=== PATIENT | female | born 1945 | race Caucasian/White ===

== ENCOUNTER 2017-02-26 20:22 | Inpatient (IN) | payer MEDICARE, OTHER ==
[~2017-02-26] VITALS: Ht 170.2 cm; Wt 62.6 kg
[~2017-02-26 20:22] MED LIST: ACET-868 PO; IPRA3AMP IH; METO25TA20 PO; NICO1PAT28 TD; PANT40TA4 PO; THIA100T74 PO
--- NOTE | 2017-02-26 20:45 | NUR ---
ADMISSION NOTES: ADMITTED A 71 Y/O FEMALE FROM [facility]. PT ON 5150 HOLD FOR DTS. PER HOLD, PATIENT STATES SHE HAS DEPRESSION AND HAS BEEN FEELING SAD LATELY. PT STATES SHE "FEELS LIKE SHE IS GOING TO ". PT ADMITS TO SUICIDAL IDEATION BUT UNSURE OF PLAN AT THIS TIME. PATIENT ADMITTING DX. DEPRESSION AND MEDICAL DX. OF HTN, ACUTE PANCREATITIS, POLYARTHRITIS, NEAR SYNCOPE, MUSCLE WEAKNESS, CHRONIC PAIN SYNDROME. UPON FACE TO FACE EVALUATION, PATIENT IS ALERT AND ORIENTED X 3. V/S WNL. PATIENT HAS NO SOB, RESPIRATION EVEN AND UNLABORED, NO ACUTE DISTRESS NOTED, DENIES PAIN AND DISCOMFORT. DENIES SI/HI AT THIS TIME. AMBULATORY WITH WALKER. PATIENT IS UNDER THE CARE OF DR. JARA FOR PSYCH AND ANIL FOR MEDICAL. NOTIFIED DR. JARA WITH ORDERS GIVEN NOTED AND CARRIED OUT. SKIN AND BODY CHECKED DONE. SKIN CLEAR AND INTACT. BELONGINGS INSPECTED AND PLACED TO SAFE LOCKED CABINET. ALL NEEDS ATTENDED AND MET. WILL CONTINUE TO MONITOR M05YHED FOR SAFETY AND BEHAVIOR.
[2017-02-26] MEDS ORDERED: ACETAMINOPHEN 325 MG TABLET PO PRN ×2 (21:00→22:30)
[2017-02-26] MEDS ORDERED: MAGNESIUM HYDROXIDE 30 ML UDC PO PRN (21:00)
[2017-02-26] MEDS ORDERED: LORAZEPAM 0.5 MG TABLET PO PRN (21:00)
[2017-02-26] MEDS ORDERED: MAG HYDROX/AL HYDROX/SIMETH 30 ML UDC PO PRN (21:00)
[2017-02-26] MEDS ORDERED: IPRATROPIUM/ALBUTEROL INHALER IH PRN (22:30)
[2017-02-27 00:24] VITALS: BP 146/87
[2017-02-27 07:24] LABS: BASOPHILS % (AUTO) 0.2 % (0.0-2.0); EOSINOPHILS # (AUTO) 0.1 /CMM (0.0-0.7); EOSINOPHILS % (AUTO) 1.6 % (0.0-6.0); HEMATOCRIT 41 % (33-45); HEMOGLOBIN 13.7 g/dL (11.5-14.8); LYMPHOCYTES # (AUTO) 2.3 /CMM (0.8-4.8); LYMPHOCYTES % (AUTO) 29.3 % (20.0-44.0); MEAN CORPUSCULAR HEMOGLOBIN 29 PG (26.0-33.0); MEAN CORPUSCULAR HGB CONC 34 g/dl (31.0-36.0); MEAN CORPUSCULAR VOLUME 85 fL (82-100); MONOCYTES # (AUTO) 0.7 /CMM (0.1-1.30); MONOCYTES % (AUTO) 8.6 % (2.0-12.0); NEUTROPHILS # (AUTO) 4.7 /CMM (1.8-8.9); NEUTROPHILS % (AUTO) 60.3 % (43.0-81.0); PLATELET COUNT (AUTO) 280 /CMM (150-450); RDW COEFFICIENT OF VARIATION 14.8 (11.5-15.0); WHITE BLOOD COUNT (AUTO) 7.9 K/uL (4.3-11.0)
[2017-02-27 07:54] LABS: CHOLESTEROL 239 mg/dL (<200); HDL CHOLESTEROL 109 mg/dL (40-60); LDL 102 mg/dL (0-99); TRIGLYCERIDES 128 mg/dL (30-150)
[2017-02-27 07:55] LABS: ALANINE AMINOTRANSFERASE 24 U/L (12-78); ALBUMIN 3.8 g/dL (3.4-5.0); ALKALINE PHOSPHATASE 64 U/L (46-116); ASPARTATE AMINOTRANSFERASE 22 U/L (15-37); BILIRUBIN,TOTAL 0.8 mg/dL (0.2-1.0); CALCIUM, SERUM 8.9 mg/dL (8.5-10.1); CARBON DIOXIDE 30 mmol/L (21-32); CHLORIDE 101 mmol/L (98-107); CREATININE 0.7 mg/dL (0.6-1.3); GLUCOSE 105 mg/dL (74-106); POTASSIUM 3.3 mmol/L (3.5-5.1); SODIUM SERUM 141 mmol/L (136-145); TOTAL PROTEIN, SERUM 7.9 g/dL (6.4-8.2); UREA NITROGEN, BLOOD 12 mg/dL (7-18)
[2017-02-27] MEDS ORDERED: IPRATROPIUM NEB FS 0.5 MG/2.5 ML AMPUL.NEB NEB PRN (08:00)
[2017-02-27] MEDS ORDERED: ALBUTEROL FS 2.5 MG/0.5 ML VIAL.NEB NEB PRN (08:00)
[2017-02-27 08:23] VITALS: BP 139/80
[2017-02-27] MEDS: NICOTINE PATCH (21MG) 21 MG PATCH.TD24 TD SCH (09:00)
[2017-02-27] MEDS: PANTOPRAZOLE 40 MG TABLET.DR PO SCH (09:18)
[2017-02-27] MEDS: METOPROLOL TARTRATE 25 MG TABLET PO SCH ×2 (09:18→20:22)
[2017-02-27] MEDS: THIAMINE HCL 100 MG TABLET PO SCH (09:19)
[2017-02-27] MEDS ORDERED: POTASSIUM CHLORIDE 20 MEQ TAB.PRT.SR PO ONE (09:30)
[2017-02-27] MEDS: LORAZEPAM 0.5 MG TABLET PO PRN (13:14)
--- NOTE | 2017-02-27 13:14 | NUR ---
ADMINISTERED ATIVAN 2 MG PO PRN FOR ANXIETY, V/S STABLE BP - 140/89, P-77, CONTINUED MONITORING.
[2017-02-27 16:00] VITALS: BP 164/99
[2017-02-27 20:25] VITALS: BP 125/80
--- NOTE | 2017-02-27 20:31 | NUR ---
GPS/RN NOTE: RECEIVED PATIENT RESTING, CALM, INITIATES CONVERSATION. NO APPARENT DISTRESS NOTED.
[2017-02-27] MEDS: ATORVASTATIN 10 MG TABLET PO SCH (21:08)
--- NOTE | 2017-02-28 06:43 | NUR ---
GPS/RN NOTE: AWAKE, C/O GENERALIZED PAIN. 3/10 PAIN SCALE, TYLENOL 650 MG PO GIVEN.
[2017-02-28 08:00] VITALS: BP 127/77
[2017-02-28] MEDS: PANTOPRAZOLE 40 MG TABLET.DR PO SCH (08:31)
[2017-02-28] MEDS: THIAMINE HCL 100 MG TABLET PO SCH (08:31)
[2017-02-28] MEDS: METOPROLOL TARTRATE 25 MG TABLET PO SCH ×2 (08:32→21:30)
[2017-02-28] MEDS: NICOTINE PATCH (21MG) 21 MG PATCH.TD24 TD SCH (08:32)
[2017-02-28] MEDS: ESCITALOPRAM OXALATE (10 MG) 10 MG TABLET PO SCH (08:37)
[2017-02-28] MEDS: LORAZEPAM 0.5 MG TABLET PO PRN (08:37)
--- NOTE | 2017-02-28 08:37 | NUR ---
GPS RN NOTES/ ADMINISTERED ATIVAN 2 MG PO PRN FOR ANXIETY, PER MD ORDER BP -130/69, P-59, CONTINUED MONITORING.
--- NOTE | 2017-02-28 15:29 | NUR ---
Initial discharge plan: Pt. resides alone at [address] [facility] [address] and wants to return. MATY will follow up with pt's son, Amish [phone] to verify whether it is safe for pt to return or not. Pt. refuses placement at this time and wants to return home. MATY will follow up with MD and will help arrange for a safe and proper discharge.
[2017-02-28 16:02] VITALS: BP 113/74
--- NOTE | 2017-02-28 19:30 | NUR ---
GPS RN NOTE, RECEIVED PATIENT AWAKE AND IN BED, NO S/S OR COMPLAINTS OF PAIN AT THIS TIME. PATIENT IS DISPLAYING NO S/S OF APPARENT DISTRESS AT THIS TIME. PATIENT BREATHING IS UNLABORED WITH EQUAL RISE AND FALL OF THE CHEST. PATIENT IS ALERT AND ORIENTED X 1 -2 ON ROOM AIR WITH A SPO2 96%. PATIENT COMPLAINT WITH MEDICATION, ANXIOUS, COOPERATIVE, CONFUSED, DISORGANIZED, AND NEEDS REORIENTATION. PATIENT DENIES SUICIDE AND HOMICIDAL IDEATIONS AT THIS TIME. PATIENT ASSISTED WITH TURNING AND REPOSITIONING Q2HR AND PRN FOR COMFORT AND CIRCULATION. PATIENT HAS NO NEEDS AT THIS TIME. PATIENT EDUCATED ON THE USE OF THE CALL CHACKO. PATIENT BED SIDE RAILS UP X2 FOR SAFETY, BED IS LOCKED AND LOW WILL CONTINUE TO MONITOR AND MAINTAIN SAFETY.
[2017-02-28] MEDS ORDERED: HYDROCODONE/APAP 5/325MG 1 EACH TABLET ONE (21:00)
[2017-02-28] MEDS: HYDROCODONE/APAP 5/325MG 1 EACH TABLET PO PRN (21:01)
--- NOTE | 2017-02-28 21:01 | NUR ---
GPS RN NOTE, PATIENT HAS A COMPLAINT OF CHRONIC RIGHT HIP PAIN AT 6 OUT 10 ON THE PAIN SCALE AND WOULD LIKE MEDICATION AT THIS TIME. PATIENT VITAL SIGNS ARE STABLE AT THIS TIME. PAGED [facility] AND INFORMED DEANDRA FIGUEROA OF MY FINDINGS. DEANDRA FIGUEROA ORDERED TO NORCO 5-325 1 TAB PO Q4HR PRN. ALL ORDERS NOTED AND CARRIED OUT. WILL REASSESS PAIN AND I WILL CONTINUE TO MONITOR THIS PATIENT.
[2017-02-28] MEDS: ATORVASTATIN 10 MG TABLET PO SCH (21:29)
[2017-02-28 22:19] VITALS: BP 128/84
[2017-02-28] MEDS: ZOLPIDEM TARTRATE 5 MG TABLET PO PRN (22:20)
--- NOTE | 2017-02-28 22:20 | NUR ---
GPS RN NOTE, GPS RN NOTE PATIENT HAS A COMPLAINT OF NOT BEING ABLE TO SLEEP AND WOULD LIKE A SLEEPING AID AT THIS TIME. PATIENT VITAL SIGNS ARE STABLE. GAVE AMBIEN 5MG PO HS ORDERED. WILL REASSESS FOR INSOMNIA AND I WILL CONTINUE TO MONITOR THIS PATIENT.
[2017-02-28 22:26] VITALS: BP 123/80
[2017-03-01] MEDS: LORAZEPAM 0.5 MG TABLET PO PRN (02:56)
--- NOTE | 2017-03-01 02:56 | NUR ---
GPS RN NOTE, PATIENT HAS A COMPLAINT OF FEELING ANXIOUS AND WOULD LIKE MEDICATION AT THIS TIME. PATIENT VITAL SIGNS ARE STABLE. GAVE ATIVAN 2 MG PO Q3HR PRN ORDERED. WILL REASSESS FOR ANXIETY AND I WILL CONTINUE TO MONITOR THIS PATIENT.
[2017-03-01 08:00] VITALS: BP 131/91
[2017-03-01] MEDS: NICOTINE PATCH (21MG) 21 MG PATCH.TD24 TD SCH (08:34)
[2017-03-01] MEDS: THIAMINE HCL 100 MG TABLET PO SCH (08:35)
[2017-03-01] MEDS: ESCITALOPRAM OXALATE (10 MG) 10 MG TABLET PO SCH (08:35)
[2017-03-01] MEDS: PANTOPRAZOLE 40 MG TABLET.DR PO SCH (08:35)
[2017-03-01] MEDS: METOPROLOL TARTRATE 25 MG TABLET PO SCH ×2 (08:36→20:26)
[2017-03-01] MEDS: HYDROCODONE/APAP 5/325MG 1 EACH TABLET PO PRN (08:42)
--- NOTE | 2017-03-01 08:42 | NUR ---
GPS RN NOTES/ ADMINISTERED NARCO 5/325 MG PO PRN PER PATIENT REQUEST, V/S TAKEN BP-131/91, P-81, ENCOURAGED TO INCREASE FLUID INTAKE. CONTINUED MONITORING.
[2017-03-01 16:03] VITALS: BP 148/95
[2017-03-01 19:50] VITALS: BP 136/90
--- NOTE | 2017-03-01 20:00 | NUR ---
GPS/RN OPENING NOTES PATIENT AWAKE, ABLE TO AMBULATE W/ WALKER, ALERT, ORIENTED X2, ABLE TO VERBALIZE NEEDS AND COOPERATIVE TO CARE, WILL CONTINUE TO MONITOR. RESPIRATIONS EVEN AND UNLABORED, DENIES PAIN AT THIS TIME.WILL CONTINUE TO MONITOR.
[2017-03-01 20:19] VITALS: BP 136/90
[2017-03-01 20:23] VITALS: BP 136/90
[2017-03-01 20:51] LABS: CALCIUM, SERUM 8.7 mg/dL (8.5-10.1); CARBON DIOXIDE 26 mmol/L (21-32); CHLORIDE 102 mmol/L (98-107); GLUCOSE 153 mg/dL (74-106); POTASSIUM 3.8 mmol/L (3.5-5.1); SODIUM SERUM 137 mmol/L (136-145); UREA NITROGEN, BLOOD 18 mg/dL (7-18)
[2017-03-01] MEDS: ATORVASTATIN 10 MG TABLET PO SCH (21:22)
--- NOTE | 2017-03-02 06:08 | NUR ---
GPS/RN CLOSING NOTES PATIENT IN BED, ABLE TO SLEEP DURING THE NIGHT. ASSIST TO BATHROOM, ATTEND TO NEEDS. NO PAIN VERBALIZED AND OBSERVED. RESPIRATIONS EVEN AND UNLABORED, WILL CONTINUE MONITORING AND ENDORSE TO AM RN FOR FESTUS.
[2017-03-02 08:00] VITALS: BP 139/75
[2017-03-02] MEDS: THIAMINE HCL 100 MG TABLET PO SCH (08:37)
[2017-03-02] MEDS: PANTOPRAZOLE 40 MG TABLET.DR PO SCH (08:37)
[2017-03-02] MEDS: ESCITALOPRAM OXALATE (10 MG) 10 MG TABLET PO SCH (08:37)
[2017-03-02] MEDS: NICOTINE PATCH (21MG) 21 MG PATCH.TD24 TD SCH (08:37)
[2017-03-02] MEDS: METOPROLOL TARTRATE 25 MG TABLET PO SCH ×2 (08:38→21:18)
[2017-03-02] MEDS: HYDROCODONE/APAP 5/325MG 1 EACH TABLET PO PRN (10:01)
--- NOTE | 2017-03-02 10:01 | NUR ---
GPS RN NOTES ADMINISTERED NARCO 5/325 MG PO PRN FOR CHRONIC GENERALIZED PAIN 02/17, PER PATIENT REQUEST, V/S STABLE, BP 134/75, P-79, ENCOURAGED TO INCREASE FLUID INTAKE. CONTINUED MONITORING.
--- NOTE | 2017-03-02 15:43 | NUR ---
SW attempted to speak with pt's son, Amish [phone] but he was not available. SW also spoke with pt and pt. continues to insist that she wants to go home. SW will provide resources to the patient to outpatient treatment centers.
[2017-03-02 16:11] VITALS: BP_SYST 103; BP_SYST 119; BP_DIAS 59; BP_DIAS 69
[2017-03-02 20:15] VITALS: BP 121/84
[2017-03-02] MEDS: ATORVASTATIN 10 MG TABLET PO SCH (21:17)
[2017-03-02] MEDS: ZOLPIDEM TARTRATE 5 MG TABLET PO PRN (21:46)
--- NOTE | 2017-03-03 06:32 | NUR ---
RN GPS NOTES PATIENT RESTING HER BED, NO ACUTE DISTRESS NOTED ,NO CHANGES IN STATUS. ALL NEEDS ATTENDED ANTICIPATED . DENIES SI AT THIS TIME, WILL ENDORSE TO NEXT SHIFT FOR CONTINUITY CARE
[2017-03-03 08:00] VITALS: BP 136/76
[2017-03-03] MEDS: ESCITALOPRAM OXALATE (10 MG) 10 MG TABLET PO SCH (09:04)
[2017-03-03] MEDS: THIAMINE HCL 100 MG TABLET PO SCH (09:04)
[2017-03-03] MEDS: PANTOPRAZOLE 40 MG TABLET.DR PO SCH (09:04)
[2017-03-03] MEDS: METOPROLOL TARTRATE 25 MG TABLET PO SCH ×2 (09:04→21:18)
[2017-03-03] MEDS: NICOTINE PATCH (21MG) 21 MG PATCH.TD24 TD SCH (09:04)
--- NOTE | 2017-03-03 13:20 | NUR ---
MATY left a voicemail for pt's son, Amish [phone] informing him of pt's discharge for this Tuesday. 03/05/
[2017-03-03 15:45] VITALS: BP 155/85
[2017-03-03 20:00] VITALS: BP 126/77
[2017-03-03] MEDS: ATORVASTATIN 10 MG TABLET PO SCH (21:17)
[2017-03-03] MEDS: ZOLPIDEM TARTRATE 5 MG TABLET PO PRN (22:04)
[2017-03-04 06:28] LABS: APPEARANCE,URINE CLEAR (CLEAR); BILIRUBIN,URINE NEGATIVE (NEGATIVE); BLOOD, URINE NEGATIVE Ery/uL (NEGATIVE); COLOR,URINE YELLOW (YELLOW); KETONES,URINE NEGATIVE (NEGATIVE); LEUKOCYTE ESTERASE ,URINE NEGATIVE (NEGATIVE); NITRITE, URINE NEGATIVE (NEGATIVE); PH,URINE 6.5 (5.0-8.0); PROTEIN,URINE NEGATIVE (NEGATIVE); UGLUCOSE NEGATIVE (NEGATIVE); UROBILINOGEN,URINE 0.2 EU/dL (0.2)
--- NOTE | 2017-03-04 06:30 | NUR ---
RN GPS NOTES PATIENT RESTING HER BED, NO ACUTE DISTRESS NOTED ,NO CHANGES IN STATUS. ALL NEEDS ATTENDED ANTICIPATED . DENIES SI/HI AT THIS TIME, WILL ENDORSE TO NEXT SHIFT FOR CONTINUITY CARE
[2017-03-04 08:00] VITALS: BP 133/76
[2017-03-04] MEDS: THIAMINE HCL 100 MG TABLET PO SCH (08:40)
[2017-03-04] MEDS: ESCITALOPRAM OXALATE (10 MG) 10 MG TABLET PO SCH (08:40)
[2017-03-04] MEDS: PANTOPRAZOLE 40 MG TABLET.DR PO SCH (08:40)
[2017-03-04] MEDS: NICOTINE PATCH (21MG) 21 MG PATCH.TD24 TD SCH (08:41)
[2017-03-04] MEDS: METOPROLOL TARTRATE 25 MG TABLET PO SCH (08:41)
[2017-03-04] MEDS: HYDROCODONE/APAP 5/325MG 1 EACH TABLET PO PRN (12:57)
--- NOTE | 2017-03-04 12:58 | NUR ---
Discharge note: Pt. will discharge back home to [address] [facility] [address] . Pt's son, Amish [phone] has been notified via voicemail. Pt. is calm, cooperative, oriented and able to make her own decisions. Pt. will be discharged back home via taxi. Pt. is an alcoholic, hence, has a screening appointment at [facility], [address] [place] [address] 9:00AM on 03/08/17. Pt. reported that did not have a psychiatrist or an stencil maker; therefore, pt was referred to [facility][1] [address] to see a psychiatrist within 7 days of discharge. Discharge paperwork has been signed, and discharge instructions to be provided to the patient upon discharge.
[2017-03-04 16:00] VITALS: BP 116/64
--- NOTE | 2017-03-04 16:30 | NUR ---
GPS MSWS NOTES: Patient discharged back home to [address] [facility] [address] . Patient's condition is stable for discharge, VS stable. Patient denies any SI/HI/AVH at the time of discharge. All belongings returned to the patient. Prescriptions faxed to the [facility] pharmacy which is patient's preferred pharmacy [[address] [facility], [address], tel: [phone]]. Spoke with zaida Armendariz, confirmed fax receipt. Patient provided with Educational Exit Care and prescriptions. Pt left the unit accompanied by the staff, went via taxi.
== END 2017-03-04 16:30 | disposition home or self-care (01) | DRG 881 ==
LOC: GPS 20:22
PROVIDERS: ADMIT Psychiatry & Neurology Psychiatry; ATTEND Psychiatry & Neurology Psychiatry
DX: F32.9 Major depressive disorder, single episode, unspecified (principal); R45.851 Suicidal ideations; D64.9 Anemia, unspecified; K86.0 Alcohol-induced chronic pancreatitis; I10 Essential (primary) hypertension; Z81.8 Family history of other mental and behavioral disorders; Z96.649 Presence of unspecified artificial hip joint; Z79.899 Other long term (current) drug therapy; Y90.7 Blood alcohol level of 200-239 mg/100 ml; F41.9 Anxiety disorder, unspecified; F17.210 Nicotine dependence, cigarettes, uncomplicated; F10.229 Alcohol dependence with intoxication, unspecified; E87.6 Hypokalemia; E78.5 Hyperlipidemia, unspecified
CPT/HCPCS: 36415; 80048-TC; 80053-TC; 80061-TC; 81000-TC; 85025-TC; 87081-TC; 87086-TC; 87186-TC

== ENCOUNTER 2017-06-18 19:01 | Emergency (ER) | payer MEDICARE, OTHER ==
[~2017-06-18] VITALS: Ht 175.3 cm; Wt 68.0 kg
--- NOTE | 2017-06-18 19:10 | NUR ---
PT TO ER BED 6. PT CINDY WILHELM FROM [facility], C/O BACK PAIN FROM A FALL X 2 HOURS AGO. PT DENIES HITTING HER HEAD AND LOC. PT PLACED IN A GOWN AND ON THE REGISTERED ACCOUNT ADMINISTRATOR. VSS/RESP EVEN UNLABORED/NAD NOTED/SKIN WARM AND DRY/DENIES N-V-D/AOX4. AWAITING MD GOMEZ.
--- NOTE | 2017-06-18 19:31 | NUR ---
AT BEDSIDE FOR EVAL.
--- NOTE | 2017-06-18 19:45 | NUR ---
20G IV TO R AC X 2 ATTEMPTS USING ASEPTIC TECH, BLOOD HANDED OVER TO LAB AT BEDSIDE. IV FLUSHES EASILY WITH NS.
[2017-06-18 19:55] LABS: BASOPHILS # (AUTO) 0.1 /CMM (0.0-0.2); BASOPHILS % (AUTO) 0.8 % (0.0-2.0); EOSINOPHILS # (AUTO) 0.1 /CMM (0.0-0.7); EOSINOPHILS % (AUTO) 0.8 % (0.0-6.0); HEMATOCRIT 39 % (33-45); HEMOGLOBIN 12.5 g/dL (11.5-14.8); LYMPHOCYTES # (AUTO) 2.3 /CMM (0.8-4.8); LYMPHOCYTES % (AUTO) 23.4 % (20.0-44.0); MEAN CORPUSCULAR HEMOGLOBIN 27 PG (26.0-33.0); MEAN CORPUSCULAR HGB CONC 32 g/dl (31.0-36.0); MEAN CORPUSCULAR VOLUME 84 fL (82-100); MONOCYTES # (AUTO) 0.8 /CMM (0.1-1.30); MONOCYTES % (AUTO) 8.2 % (2.0-12.0); NEUTROPHILS # (AUTO) 6.5 /CMM (1.8-8.9); NEUTROPHILS % (AUTO) 66.8 % (43.0-81.0); PLATELET COUNT (AUTO) 286 /CMM (150-450); RDW COEFFICIENT OF VARIATION 12.5 (11.5-15.0); RED BLOOD CELL COUNT(AUTO) 4.62 MIL/uL (4.0-5.2); WHITE BLOOD COUNT (AUTO) 9.8 K/uL (4.3-11.0)
--- NOTE | 2017-06-18 19:59 | NUR ---
XRAY AT BEDSIDE FOR CXR.
[2017-06-18] MEDS ORDERED: IPRATROPIUM NEB FS 0.5 MG/2.5 ML AMPUL.NEB NEB ONE (20:00)
[2017-06-18] MEDS ORDERED: ALBUTEROL FS 2.5 MG/0.5 ML VIAL.NEB NEB ONE (20:00)
[2017-06-18 20:06] LABS: CALCIUM, SERUM 9.4 mg/dL (8.5-10.1); CARBON DIOXIDE 27 mmol/L (21-32); CHLORIDE 105 mmol/L (98-107); GLUCOSE 102 mg/dL (74-106); SODIUM SERUM 142 mmol/L (136-145); UREA NITROGEN, BLOOD 14 mg/dL (7-18)
[2017-06-18 20:09] LABS: INR 0.98 (0.87-1.13); PROTHROMBIN TIME 10.2 SECS (9.5-12.7)
[2017-06-18 20:11] LABS: ALANINE AMINOTRANSFERASE 12 U/L (12-78); ALBUMIN 3.5 g/dL (3.4-5.0); ALCOHOL, BLOOD < 3 mg/dL (0-0); ALKALINE PHOSPHATASE 71 U/L (46-116); ASPARTATE AMINOTRANSFERASE 15 U/L (15-37); BILIRUBIN,DIRECT 0.1 mg/dL (0.0-0.2); BILIRUBIN,TOTAL 0.3 mg/dL (0.2-1.0); TOTAL PROTEIN, SERUM 7.7 g/dL (6.4-8.2)
[2017-06-18 20:12] LABS: ACETAMINOPHEN < 10 ug/ml (10-30); SALICYLATE 1.4 mg/dL (2.8-20.0)
[2017-06-18 20:13] LABS: TROPONIN I < 0.017 ng/mL (0.00-0.056)
--- NOTE | 2017-06-18 20:15 | NUR ---
RT CALLED FOR NEB TX PER MD ORDERS.
--- NOTE | 2017-06-18 20:15 | NUR ---
URINE SPECIMEN OBTAINED AND SENT TO THE LAB.
[2017-06-18] MEDS ORDERED: TRAMADOL HCL 50 MG TABLET ONE (20:18)
[2017-06-18] MEDS ORDERED: IPRATROPIUM NEB FS 0.5 MG/2.5 ML AMPUL.NEB ONE (20:27)
[2017-06-18] MEDS ORDERED: ALBUTEROL FS 2.5 MG/3 ML VIAL.NEB ONE (20:27)
--- NOTE | 2017-06-18 20:28 | NUR ---
RT AT BEDSIDE FOR HAMMAD TX.
[2017-06-18] MEDS ORDERED: TRAMADOL HCL 50 MG TABLET PO ONE (20:30)
[2017-06-18 20:49] LABS: APPEARANCE,URINE Clear (CLEAR); BILIRUBIN,URINE Negative (NEGATIVE); BLOOD, URINE Negative Ery/uL (NEGATIVE); COLOR,URINE Yellow (YELLOW); KETONES,URINE Negative (NEGATIVE); LEUKOCYTE ESTERASE ,URINE Trace (NEGATIVE); NITRITE, URINE Negative (NEGATIVE); PROTEIN,URINE Negative (NEGATIVE); UGLUCOSE Negative (NEGATIVE); UROBILINOGEN,URINE 0.2 EU/dL (0.2)
[2017-06-18 20:59] LABS: BACTERIA,URINE None seen /HPF (None Seen); RBC,URINE NONE SEEN /HPF (0-2); WBC,URINE 0-2 /HPF (0-3)
[2017-06-18 21:00] LABS: SQUAMOUS EPITHELIAL CELL,UR Rare /HPF (None Seen)
--- NOTE | 2017-06-18 21:10 | NUR ---
CALLED [facility] FOR TRANSPORT - ETA 30 MIN - TRIP# [id number]
--- NOTE | 2017-06-18 21:29 | NUR ---
REPORT GIVEN TO MEGHA AT [facility] FOR FESTUS.
--- NOTE | 2017-06-18 22:00 | NUR ---
REPORT GIVEN TO IDALIA SCHWAB FOR FESTUS. PT BEING TRANSPORTED BACK TO [facility].
--- NOTE | 2017-06-18 22:02 | NUR ---
Patient discharged to [facility] for transfer back to [facility] in stable condition. Written and verbal after care instructions given. Patient verbalizes understanding of instruction.
[2017-06-18 22:07] VITALS: BP 145/78
== END 2017-06-18 22:07 | disposition home or self-care (01) ==
LOC: ER 19:03
DX: M54.5 Low back pain (principal); R51 Headache; F03.90 Unspecified dementia, unspecified severity, without behavioral disturbance, psychotic disturbance, mood disturbance, and anxiety; J44.1 Chronic obstructive pulmonary disease with (acute) exacerbation; I10 Essential (primary) hypertension; F17.200 Nicotine dependence, unspecified, uncomplicated; W01.0XXA Fall on same level from slipping, tripping and stumbling without subsequent striking against object, initial encounter; Y93.01 Activity, walking, marching and hiking; Y92.89 Other specified places as the place of occurrence of the external cause; Y99.8 Other external cause status
CPT/HCPCS: 36415; 71010-TC; 80048-TC; 80076-TC; 80305; 81000-TC; 83880; 84484-TC; 85025-TC; 85730-TC; A4606; G0480; Z7610

== ENCOUNTER 2017-09-14 17:11 | Emergency (ER) | payer MEDICARE, OTHER ==
[~2017-09-14] VITALS: Ht 175.3 cm; Wt 65.3 kg
[2017-09-14] MEDS ORDERED: ONDANSETRON HCL/PF 4 MG/2 ML VIAL IVP ONE (18:00)
[2017-09-14] MEDS ORDERED: ONDANSETRON HCL/PF 4 MG/2 ML VIAL ONE (18:00)
[2017-09-14] MEDS ORDERED: Thiamine 100 MG in IV D5W 50 ML IV SCH (18:00)
[2017-09-14] MEDS ORDERED: IV NS 0.9% 1,000 ML BAG IV ONE (18:00)
--- NOTE | 2017-09-14 18:06 | NUR ---
AMADA FROM HOME DT ETOH. PER FMILY PATIENT HAS BEEN DRINKING ALOT.PATIENT NOTED WITH MULTIPLE DISCOLORATION ON LEFT SIDE OF HEAD AND FACE, ADMITTED FALONG LAST NIGHT, NO REPORTED KO. HOWEVER PT IS COMPLAINING OF HEADACHE. PATIENT IS AEFBRILE. SATING WELL ON ROOM AIR. GOWNED AND CONNECTED PT TO TELE MONITOR; JESÚS GOMEZ
--- NOTE | 2017-09-14 18:09 | NUR ---
PATIENT WAS TAKEN TO CT
--- NOTE | 2017-09-14 18:12 | NUR ---
CALLED [facility] TO EXPEDITE THE IMAGES TO BE READ
--- NOTE | 2017-09-14 18:20 | NUR ---
DR BAUGH ON THE PHONE WITH A RADIOLIGST,
--- NOTE | 2017-09-14 18:24 | NUR ---
CALLED DR DONOVAN, LEFT A VOICEMAIL.
[2017-09-14 18:26] LABS: BASOPHILS # (AUTO) 0.2 /CMM (0.0-0.2); BASOPHILS % (AUTO) 1.5 % (0.0-2.0); EOSINOPHILS % (AUTO) 0.1 % (0.0-6.0); HEMATOCRIT 38 % (33-45); HEMOGLOBIN 12.8 g/dL (11.5-14.8); LYMPHOCYTES # (AUTO) 1.4 /CMM (0.8-4.8); LYMPHOCYTES % (AUTO) 11.5 % (20.0-44.0); MEAN CORPUSCULAR HEMOGLOBIN 28 PG (26.0-33.0); MEAN CORPUSCULAR HGB CONC 34 g/dl (31.0-36.0); MEAN CORPUSCULAR VOLUME 82 fL (82-100); MONOCYTES # (AUTO) 1.1 /CMM (0.1-1.30); MONOCYTES % (AUTO) 8.8 % (2.0-12.0); NEUTROPHILS # (AUTO) 9.5 /CMM (1.8-8.9); NEUTROPHILS % (AUTO) 78.1 % (43.0-81.0); PLATELET COUNT (AUTO) 281 /CMM (150-450); RDW COEFFICIENT OF VARIATION 14.3 (11.5-15.0); RED BLOOD CELL COUNT(AUTO) 4.56 MIL/uL (4.0-5.2); WHITE BLOOD COUNT (AUTO) 12.2 K/uL (4.3-11.0)
--- NOTE | 2017-09-14 18:30 | NUR ---
CALLED DR DONOVAN, NO ANSWER
[2017-09-14 18:35] LABS: INR 0.89 (0.85-1.15)
[2017-09-14 18:37] LABS: CALCIUM, SERUM 9.1 mg/dL (8.5-10.1); CARBON DIOXIDE 27 mmol/L (21-32); CHLORIDE 93 mmol/L (98-107); GLUCOSE 121 mg/dL (74-106); POTASSIUM 3.7 mmol/L (3.5-5.1); SODIUM SERUM 131 mmol/L (136-145); UREA NITROGEN, BLOOD 21 mg/dL (7-18)
--- NOTE | 2017-09-14 18:40 | NUR ---
CALLED , LEFT MESSAGE ON VOICEMAIL
[2017-09-14 18:43] LABS: ALANINE AMINOTRANSFERASE 19 U/L (12-78); ALBUMIN 4.1 g/dL (3.4-5.0); ALCOHOL, BLOOD < 3 mg/dL (0-0); ALKALINE PHOSPHATASE 82 U/L (46-116); ASPARTATE AMINOTRANSFERASE 25 U/L (15-37); BILIRUBIN,DIRECT 0.2 mg/dL (0.0-0.2); BILIRUBIN,TOTAL 0.6 mg/dL (0.2-1.0); TOTAL PROTEIN, SERUM 8.3 g/dL (6.4-8.2)
[2017-09-14 18:45] LABS: TROPONIN I < 0.017 ng/mL (0.00-0.056)
[2017-09-14] MEDS ORDERED: Magnesium 1 GM/2 ML VIAL IV ONE (19:00)
[2017-09-14] MEDS ORDERED: LEVETIRACETAM (500MG) 500 MG in IV NS 0.9% 100 ML IV SCH (19:00)
[2017-09-14] MEDS ORDERED: MANNITOL 12.5 GM/50 ML VIAL IV ONE (19:00)
--- NOTE | 2017-09-14 19:00 | NUR ---
RECEIVED CALL FROM TERRENCE AT [facility], GAVE HER PT INFO, FAXED FACESHEET TO [phone].
--- NOTE | 2017-09-14 19:25 | NUR ---
RECEIVED CALL FROM BRIANNA AT [facility], ETA FOR [facility] IS [phone].
[2017-09-14] MEDS ORDERED: Magnesium 1GM/D5W 100ML PREMIX 200 ML IV ONE (19:35)
[2017-09-14 19:36] LABS: APPEARANCE,URINE Clear (CLEAR); BILIRUBIN,URINE Negative (NEGATIVE); BLOOD, URINE Trace-intact Ery/uL (NEGATIVE); COLOR,URINE Yellow (YELLOW); KETONES,URINE 15 (NEGATIVE); LEUKOCYTE ESTERASE ,URINE Negative (NEGATIVE); NITRITE, URINE Negative (NEGATIVE); PH,URINE 7.5 (5.0-8.0); PROTEIN,URINE 30 mg/dl (NEGATIVE); UGLUCOSE Negative (NEGATIVE); UROBILINOGEN,URINE 0.2 EU/dL (0.2)
--- NOTE | 2017-09-14 19:52 | NUR ---
PT GOING TO [facility], ROOM [facility], NUMBER TO GIVE REPORT IS [phone], ACCEPTED BY .
[2017-09-14 19:54] LABS: RBC,URINE 2-3/HPF /HPF (0-2)
[2017-09-14 19:55] LABS: BACTERIA,URINE Few /HPF (None Seen); SQUAMOUS EPITHELIAL CELL,UR Many /HPF (None Seen); URINE AMORPHOUS PHOSPHATES Moderate /HPF (None Seen); WBC,URINE 1-2/HPF /HPF (0-3)
[2017-09-14 21:00] VITALS: BP 136/80
--- NOTE | 2017-09-14 21:37 | NUR ---
PATIENT WAS PICKED UP BY MANUFACTURING ENGINEER AND RN TO BE TRANSPORTED TO [facility]. S
== END 2017-09-14 21:46 | disposition short-term general hospital (02) ==
LOC: ER 17:13
DX: S06.5X0A Traumatic subdural hemorrhage without loss of consciousness, initial encounter (principal); I10 Essential (primary) hypertension; F17.200 Nicotine dependence, unspecified, uncomplicated; Z98.890 Other specified postprocedural states; Z60.2 Problems related to living alone; W18.39XA Other fall on same level, initial encounter; Y93.89 Activity, other specified; Y92.89 Other specified places as the place of occurrence of the external cause; Y99.8 Other external cause status
CPT/HCPCS: 36415; 70450; 71045; 80048; 80076; 81001; 83735; 84484; 85025; 85730; 93005; 96365 ×2; 96375; 99291; A4606; G0480; J1953; J2405; J3411; J3475; J7030; J7060; 81000-TC; Z7610

== ENCOUNTER 2018-01-09 14:29 | Inpatient (IN) | payer MEDICARE, OTHER ==
[~2018-01-09] VITALS: Ht 170.2 cm; Wt 61.2 kg
[2018-01-09 15:30] LABS: BASOPHILS # (AUTO) 0.1 /CMM (0.0-0.2); BASOPHILS % (AUTO) 0.8 % (0.0-2.0); EOSINOPHILS % (AUTO) 0.2 % (0.0-6.0); HEMATOCRIT 38 % (33-45); HEMOGLOBIN 12.7 g/dL (11.5-14.8); LYMPHOCYTES # (AUTO) 1.7 /CMM (0.8-4.8); LYMPHOCYTES % (AUTO) 21.9 % (20.0-44.0); MEAN CORPUSCULAR HEMOGLOBIN 29 PG (26.0-33.0); MEAN CORPUSCULAR HGB CONC 33 g/dl (31.0-36.0); MEAN CORPUSCULAR VOLUME 88 fL (82-100); MONOCYTES # (AUTO) 0.5 /CMM (0.1-1.30); MONOCYTES % (AUTO) 6.1 % (2.0-12.0); NEUTROPHILS # (AUTO) 5.5 /CMM (1.8-8.9); PLATELET COUNT (AUTO) 252 /CMM (150-450); RDW COEFFICIENT OF VARIATION 14.6 (11.5-15.0); RED BLOOD CELL COUNT(AUTO) 4.38 MIL/uL (4.0-5.2); WHITE BLOOD COUNT (AUTO) 7.8 K/uL (4.3-11.0)
[2018-01-09 15:40] LABS: CALCIUM, SERUM 8.5 mg/dL (8.5-10.1); CARBON DIOXIDE 21 mmol/L (21-32); CHLORIDE 100 mmol/L (98-107); CREATININE 0.8 mg/dL (0.6-1.3); GLUCOSE 83 mg/dL (74-106); POTASSIUM 3.7 mmol/L (3.5-5.1); SODIUM SERUM 139 mmol/L (136-145); UREA NITROGEN, BLOOD 22 mg/dL (7-18)
[2018-01-09 15:43] LABS: INR 0.95 (0.85-1.15)
[2018-01-09 15:49] LABS: TROPONIN I < 0.017 ng/mL (0.00-0.056)
[2018-01-09] MEDS ORDERED: GABA-534 PO (17:56)
[2018-01-09] MEDS ORDERED: ZOLPIDEM TARTRATE 5 MG TABLET PO PRN (19:00)
[2018-01-09] MEDS ORDERED: MAG HYDROX/AL HYDROX/SIMETH 30 ML UDC PO PRN (19:00)
[2018-01-09] MEDS ORDERED: ONDANSETRON HCL/PF 4 MG/2 ML VIAL IVP PRN (19:00)
[2018-01-09] MEDS ORDERED: Z GUARD REMEDY 2 OZ OINT TP PRN (19:00)
[2018-01-09 20:00] VITALS: BP 130/73
[2018-01-09] MEDS: IV NS 0.9% 1,000 ML IV PRN (20:15)
[2018-01-09] MEDS: HYDROCODONE/APAP 5/325MG 1 EACH TABLET PO PRN (20:23)
[2018-01-10 07:04] LABS: BASOPHILS % (AUTO) 0.5 % (0.0-2.0); HEMATOCRIT 38 % (33-45); HEMOGLOBIN 12.5 g/dL (11.5-14.8); LYMPHOCYTES # (AUTO) 2.1 /CMM (0.8-4.8); LYMPHOCYTES % (AUTO) 33.2 % (20.0-44.0); MEAN CORPUSCULAR HEMOGLOBIN 30 PG (26.0-33.0); MEAN CORPUSCULAR HGB CONC 33 g/dl (31.0-36.0); MEAN CORPUSCULAR VOLUME 90 fL (82-100); MONOCYTES # (AUTO) 0.7 /CMM (0.1-1.30); MONOCYTES % (AUTO) 10.9 % (2.0-12.0); NEUTROPHILS # (AUTO) 3.5 /CMM (1.8-8.9); NEUTROPHILS % (AUTO) 54.4 % (43.0-81.0); PLATELET COUNT (AUTO) 210 /CMM (150-450); RDW COEFFICIENT OF VARIATION 14.9 (11.5-15.0); RED BLOOD CELL COUNT(AUTO) 4.18 MIL/uL (4.0-5.2); WHITE BLOOD COUNT (AUTO) 6.4 K/uL (4.3-11.0)
[2018-01-10 07:19] LABS: CHOLESTEROL 191 mg/dL (<200); HDL CHOLESTEROL 131 mg/dL (40-60); LDL 58 mg/dL (0-99); TRIGLYCERIDES 55 mg/dL (30-150)
[2018-01-10 07:31] LABS: CALCIUM, SERUM 8.7 mg/dL (8.5-10.1); CARBON DIOXIDE 22 mmol/L (21-32); CHLORIDE 102 mmol/L (98-107); CREATININE 0.8 mg/dL (0.6-1.3); GLUCOSE 76 mg/dL (74-106); POTASSIUM 3.6 mmol/L (3.5-5.1); SODIUM SERUM 139 mmol/L (136-145); UREA NITROGEN, BLOOD 22 mg/dL (7-18)
[2018-01-10 07:42] LABS: MAGNESIUM 1.2 mg/dL (1.8-2.4)
[2018-01-10 08:00] VITALS: BP_SYST 134; BP_SYST 174; BP_DIAS 103; BP_DIAS 86
[2018-01-10] MEDS: GABAPENTIN 300 MG CAPSULE PO SCH ×3 (08:46→16:03)
[2018-01-10] MEDS: METOPROLOL TARTRATE 25 MG TABLET PO SCH ×2 (08:46→20:58)
[2018-01-10] MEDS: Magnesium 1GM/D5W 100ML PREMIX 100 ML IV SCH ×4 (10:47→14:02)
[2018-01-10] MEDS: IV NS 0.9% 1,000 ML IV PRN (10:59)
[2018-01-10 16:00] VITALS: BP 122/78
[2018-01-10] MEDS: HYDROCODONE/APAP 5/325MG 1 EACH TABLET PO PRN (16:03)
[2018-01-10 20:00] VITALS: BP 141/77
[2018-01-10] MEDS: ACETAMINOPHEN 325 MG TABLET PO PRN (22:35)
[2018-01-11] MEDS: IV NS 0.9% 1,000 ML IV PRN (05:35)
[2018-01-11 07:04] LABS: BASOPHILS % (AUTO) 0.4 % (0.0-2.0); EOSINOPHILS % (AUTO) 1.4 % (0.0-6.0); HEMATOCRIT 39 % (33-45); HEMOGLOBIN 12.9 g/dL (11.5-14.8); LYMPHOCYTES % (AUTO) 35.7 % (20.0-44.0); MEAN CORPUSCULAR HEMOGLOBIN 30 PG (26.0-33.0); MEAN CORPUSCULAR HGB CONC 33 g/dl (31.0-36.0); MEAN CORPUSCULAR VOLUME 91 fL (82-100); MONOCYTES # (AUTO) 0.6 /CMM (0.1-1.30); MONOCYTES % (AUTO) 11.1 % (2.0-12.0); NEUTROPHILS # (AUTO) 2.8 /CMM (1.8-8.9); NEUTROPHILS % (AUTO) 51.4 % (43.0-81.0); PLATELET COUNT (AUTO) 194 /CMM (150-450); RDW COEFFICIENT OF VARIATION 14.9 (11.5-15.0); RED BLOOD CELL COUNT(AUTO) 4.26 MIL/uL (4.0-5.2); WHITE BLOOD COUNT (AUTO) 5.5 K/uL (4.3-11.0)
[2018-01-11 07:15] LABS: CALCIUM, SERUM 8.5 mg/dL (8.5-10.1); CARBON DIOXIDE 27 mmol/L (21-32); CHLORIDE 107 mmol/L (98-107); CREATININE 0.8 mg/dL (0.6-1.3); GLUCOSE 101 mg/dL (74-106); MAGNESIUM 1.6 mg/dL (1.8-2.4); PHOSPHORUS 3.3 mg/dL (2.5-4.9); POTASSIUM 3.6 mmol/L (3.5-5.1); SODIUM SERUM 142 mmol/L (136-145); UREA NITROGEN, BLOOD 13 mg/dL (7-18)
[2018-01-11] MEDS: ACETAMINOPHEN 325 MG TABLET PO PRN (08:20)
[2018-01-11] MEDS: GABAPENTIN 300 MG CAPSULE PO SCH ×3 (08:20→16:58)
[2018-01-11] MEDS: ESCITALOPRAM OXALATE (10 MG) 10 MG TABLET PO SCH (08:20)
[2018-01-11] MEDS: METOPROLOL TARTRATE 25 MG TABLET PO SCH ×2 (08:21→20:57)
[2018-01-11 08:31] VITALS: BP 159/93
[2018-01-11 08:36] VITALS: BP 153/93
[2018-01-11] MEDS ORDERED: Magnesium 1GM/D5W 100ML PREMIX 100 ML IV SCH (09:30)
[2018-01-11] MEDS: HYDROCODONE/APAP 5/325MG 1 EACH TABLET PO PRN (10:55)
[2018-01-11 16:32] VITALS: BP 140/80
[2018-01-11 20:00] VITALS: BP 131/75
[2018-01-12] MEDS: IV NS 0.9% 1,000 ML IV PRN (00:27)
[2018-01-12 08:00] VITALS: BP 154/81
[2018-01-12] MEDS: ACETAMINOPHEN 325 MG TABLET PO PRN (08:26)
[2018-01-12] MEDS: METOPROLOL TARTRATE 25 MG TABLET PO SCH ×2 (08:27→22:09)
[2018-01-12] MEDS: GABAPENTIN 300 MG CAPSULE PO SCH ×3 (08:27→16:52)
[2018-01-12] MEDS: ESCITALOPRAM OXALATE (10 MG) 10 MG TABLET PO SCH (08:27)
[2018-01-12 10:46] LABS: BASOPHILS % (AUTO) 0.5 % (0.0-2.0); EOSINOPHILS % (AUTO) 1.3 % (0.0-6.0); HEMATOCRIT 37 % (33-45); HEMOGLOBIN 12.3 g/dL (11.5-14.8); LYMPHOCYTES # (AUTO) 1.9 /CMM (0.8-4.8); LYMPHOCYTES % (AUTO) 26.9 % (20.0-44.0); MEAN CORPUSCULAR HEMOGLOBIN 30 PG (26.0-33.0); MEAN CORPUSCULAR HGB CONC 33 g/dl (31.0-36.0); MEAN CORPUSCULAR VOLUME 91 fL (82-100); MONOCYTES # (AUTO) 0.7 /CMM (0.1-1.30); MONOCYTES % (AUTO) 9.7 % (2.0-12.0); NEUTROPHILS # (AUTO) 4.3 /CMM (1.8-8.9); NEUTROPHILS % (AUTO) 61.6 % (43.0-81.0); PLATELET COUNT (AUTO) 174 /CMM (150-450); WHITE BLOOD COUNT (AUTO) 6.9 K/uL (4.3-11.0)
[2018-01-12 11:00] LABS: CALCIUM, SERUM 8.6 mg/dL (8.5-10.1); CARBON DIOXIDE 24 mmol/L (21-32); CHLORIDE 107 mmol/L (98-107); CREATININE 0.9 mg/dL (0.6-1.3); GLUCOSE 147 mg/dL (74-106); POTASSIUM 3.3 mmol/L (3.5-5.1); SODIUM SERUM 139 mmol/L (136-145); UREA NITROGEN, BLOOD 10 mg/dL (7-18)
[2018-01-12 11:12] LABS: MAGNESIUM 1.2 mg/dL (1.8-2.4)
[2018-01-12] MEDS: HYDROCODONE/APAP 5/325MG 1 EACH TABLET PO PRN (11:19)
[2018-01-12] MEDS ORDERED: Magnesium 1GM/D5W 100ML PREMIX PIGGYBACK IV SCH (13:00)
[2018-01-12] MEDS: Magnesium 1GM/D5W 100ML PREMIX 100 ML IV SCH ×4 (13:12→16:01)
[2018-01-12] MEDS ORDERED: ESCI10TA PO (14:02)
[2018-01-12] MEDS ORDERED: CEPH500C2 PO (14:50)
[2018-01-12] MEDS: hydrALAZINE HCL IV 20 MG VIAL IV PRN ×2 (16:56→17:00)
[2018-01-12 20:00] VITALS: BP 134/81
[2018-01-13 08:00] VITALS: BP 116/73
[2018-01-13] MEDS: ESCITALOPRAM OXALATE (10 MG) 10 MG TABLET PO SCH (08:19)
[2018-01-13] MEDS: GABAPENTIN 300 MG CAPSULE PO SCH ×2 (08:19→12:15)
[2018-01-13] MEDS: METOPROLOL TARTRATE 25 MG TABLET PO SCH (08:24)
[2018-01-13 08:26] VITALS: BP 119/52
[2018-01-13] MEDS ORDERED: MAGNESIUM OXIDE 400 MG TABLET PO ONE (11:30)
== END 2018-01-13 15:10 | DRG 689 ==
LOC: ER 14:34 → MED 18:18
PROVIDERS: ADMIT Nurse Practitioner Acute Care; ATTEND Nurse Practitioner Acute Care
DX: N39.0 Urinary tract infection, site not specified (principal); N17.0 Acute kidney failure with tubular necrosis; K86.0 Alcohol-induced chronic pancreatitis; K86.1 Other chronic pancreatitis; Z91.5 Personal history of self-harm; R62.7 Adult failure to thrive; F10.20 Alcohol dependence, uncomplicated; D64.9 Anemia, unspecified; F17.200 Nicotine dependence, unspecified, uncomplicated; B96.89 Other specified bacterial agents as the cause of diseases classified elsewhere; E86.0 Dehydration; Z86.73 Personal history of transient ischemic attack (TIA), and cerebral infarction without residual deficits; Z79.899 Other long term (current) drug therapy; Y90.9 Presence of alcohol in blood, level not specified; F32.9 Major depressive disorder, single episode, unspecified; I10 Essential (primary) hypertension
CPT/HCPCS: 36415; 70450-TC; 71045-TC; 80048-TC; 80061-TC; 83735-TC; 84100-TC; 84484-TC; 85025-TC; 85730-TC; 87081-TC; 87086-TC; A4606; J0360; J3475; J7030; Z7610

== ENCOUNTER 2018-12-14 12:56 | Inpatient (IN) | payer MEDICARE, OTHER ==
[~2018-12-14] VITALS: Ht 170.2 cm; Wt 59.4 kg
[~2018-12-14 12:56] MED LIST changes: -ACET-868 PO; +CEPH500C2 PO; +ESCI10TA PO; +GABA-534 PO; -IPRA3AMP IH; -NICO1PAT28 TD; -PANT40TA4 PO; -THIA100T74 PO
--- NOTE | 2018-12-14 13:10 | NUR ---
CINDY WILHELM FROM [facility], [facility] REPORT GENERALIZED RASH AND ITCHING X 2 DAYS. STATES HANDS AND FEET WERE SWOLLEN, BUT NOT ANYMORE. STATES SHE WAS PREVIOUSLY HOSPITALIZED BUT "THEY DID NOT DISCHARGE ME WITH ANY MEDS". NO OTHER COMPLAINTS AT THIS TIME. PT ON MONITOR, COMFORTABLE, AND READY FOR EVAL.
[2018-12-14] MEDS ORDERED: predniSONE 20 MG TABLET PO ONE (13:30)
[2018-12-14] MEDS ORDERED: diphenhydrAMINE HCL 50 MG CAPSULE PO ONE (13:30)
[2018-12-14] MEDS ORDERED: diphenhydrAMINE HCL 50 MG CAPSULE ONE (13:42)
[2018-12-14] MEDS ORDERED: predniSONE 20 MG TABLET ONE (13:42)
--- NOTE | 2018-12-14 13:52 | NUR ---
CALLED, CARRI, , [employer]PER[employer], HE SAID THAT PATIENT WAS AGITATED/SCREAMING THAT IS WHY HER FAMILY TOLD THEM TO SEND HER HERE. FAMILY SENIOR STAFF SPECIALIZED EMPLOYMENT IS YUAN AT [phone]. HE WILL ALSE SEND US A COPY OF MEDLIST VIA FAX
[2018-12-14 14:32] LABS: BASOPHILS # (AUTO) 0.1 /CMM (0.0-0.2); BASOPHILS % (AUTO) 0.9 % (0.0-2.0); EOSINOPHILS % (AUTO) 1.7 % (0.0-6.0); HEMATOCRIT 42 % (33-45); HEMOGLOBIN 13.6 g/dL (11.5-14.8); LYMPHOCYTES # (AUTO) 2.5 /CMM (0.8-4.8); MEAN CORPUSCULAR HGB CONC 32 g/dl (31.0-36.0); MEAN CORPUSCULAR VOLUME 88 fL (82-100); MONOCYTES # (AUTO) 0.6 /CMM (0.1-1.30); MONOCYTES % (AUTO) 7.5 % (2.0-12.0); NEUTROPHILS # (AUTO) 5.2 /CMM (1.8-8.9); NEUTROPHILS % (AUTO) 60.9 % (43.0-81.0); PLATELET COUNT (AUTO) 224 /CMM (150-450); RED BLOOD CELL COUNT(AUTO) 4.79 MIL/uL (4.0-5.2); WHITE BLOOD COUNT (AUTO) 8.5 K/uL (4.3-11.0)
[2018-12-14] MEDS ORDERED: OXYB10TA PO (14:41)
[2018-12-14] MEDS ORDERED: THIA100T74 PO (14:41)
[2018-12-14] MEDS ORDERED: HYDR-3024 PO (14:41)
[2018-12-14] MEDS ORDERED: MIRT30TA7 PO (14:41)
[2018-12-14] MEDS ORDERED: ZINC220C8 PO (14:41)
[2018-12-14] MEDS ORDERED: ESCI10TA PO (14:47)
[2018-12-14] MEDS ORDERED: GABA-534 PO (14:47)
[2018-12-14] MEDS ORDERED: ASCO500T9 PO (14:47)
[2018-12-14] MEDS ORDERED: CITA20TA16 PO (14:47)
[2018-12-14] MEDS ORDERED: CLON0.1T PO (14:47)
[2018-12-14] MEDS ORDERED: FOLI1TAB16 PO (14:47)
[2018-12-14] MEDS ORDERED: AMLO5TAB9 PO (14:47)
[2018-12-14] MEDS ORDERED: CARV6.252 PO (14:47)
[2018-12-14] MEDS ORDERED: MULT-447 PO (14:47)
--- NOTE | 2018-12-14 15:27 | NUR ---
Patient is resting comfortably in bed with eyes closed. Easily aroused. VSS
[2018-12-14 16:12] LABS: ACETAMINOPHEN < 10 ug/ml (10-30); ALANINE AMINOTRANSFERASE 14 U/L (12-78); ALBUMIN 3.5 g/dL (3.4-5.0); ALCOHOL, BLOOD < 3 mg/dL (0-0); ALKALINE PHOSPHATASE 46 U/L (46-116); ASPARTATE AMINOTRANSFERASE 17 U/L (15-37); BILIRUBIN,TOTAL 0.2 mg/dL (0.2-1.0); CALCIUM, SERUM 9.2 mg/dL (8.5-10.1); CARBON DIOXIDE 21 mmol/L (21-32); CHLORIDE 107 mmol/L (98-107); CREATININE 0.8 mg/dL (0.6-1.3); GLUCOSE 86 mg/dL (74-106); POTASSIUM 3.4 mmol/L (3.5-5.1); SALICYLATE 2.9 mg/dL (2.8-20.0); SODIUM SERUM 142 mmol/L (136-145); UREA NITROGEN, BLOOD 17 mg/dL (7-18)
--- NOTE | 2018-12-14 16:15 | NUR ---
PT ASSISTED TO BATHROOM TO COLLECT URINE SAMPLE
--- NOTE | 2018-12-14 16:25 | NUR ---
REPORT GIVEN TO AGUILA WONG FOR DUSTING AND BRUSHING MACHINE OPERATOR Addendum: 12/14/18 at 1626 by REGGIE REPORT GIVEN TO AGUILA WONG FOR FESTUS
[2018-12-14 16:35] LABS: APPEARANCE,URINE Clear (CLEAR); BILIRUBIN,URINE Negative (NEGATIVE); BLOOD, URINE Negative Ery/uL (NEGATIVE); COLOR,URINE Yellow (YELLOW); KETONES,URINE Negative (NEGATIVE); LEUKOCYTE ESTERASE ,URINE Negative (NEGATIVE); NITRITE, URINE Negative (NEGATIVE); PROTEIN,URINE Negative (NEGATIVE); UGLUCOSE Negative (NEGATIVE); UROBILINOGEN,URINE 0.2 EU/dL (0.2)
[2018-12-14 16:40] VITALS: BP 143/82
--- NOTE | 2018-12-14 16:40 | NUR ---
PT TRANSFERRED TO UNIT VIA WC
[2018-12-14] MEDS ORDERED: MAG HYDROX/AL HYDROX/SIMETH 30 ML UDC PO PRN (17:00)
[2018-12-14] MEDS ORDERED: MAGNESIUM HYDROXIDE 30 ML UDC PO PRN (17:00)
[2018-12-14] MEDS ORDERED: hydrOXYzine PAMOATE 25 MG CAPSULE PO PRN (17:30)
--- NOTE | 2018-12-14 18:58 | NUR ---
ADMISSION NOTES: ADMITTED THIS 72 Y/O FEMALE PATIENT FROM [facility] VIA WHEELCHAIR. PT ADMIT FROM [facility].PT IS ON 5150 HOLD FOR GRAVELY DISABLE. UPON FACE TO FACE ASSESSMENT PATIENT IS A/O X2-3. VERBALLY RESPONSIVE. DENIES SI/HI. EASILY GETS AGITATED BUT BUT COOPERATIVE DURING ADMISSION. PT ORIENTED TO UNIT, STAFF AND UNIT POLICY. V/S TAKEN AND WNL. BELONGINGS AND CONTRABAND WERE CHECKED AND RECORDED. PT WITH SOFT NON-TENDER, NON DISTENDED ABDOMEN WITH POSITIVE BOWEL SOUNDS ON FOUR QUADRANTS. LUNGS CLEAR ON AUSCULTATION. PT PROVIDED WITH UNIT HANDBOOK AND MEDICATIONS GUIDE. SAFETY MEASURES INITIATED,.BED PLACE IN LOW LOCKED POSITION. WILL CONTINUE TO MONITOR Q15 FOR SAFETY AND BEHAVIOR.
[2018-12-14] MEDS: ACETAMINOPHEN 325 MG TABLET PO PRN (19:52)
[2018-12-14 20:00] VITALS: BP 139/77
--- NOTE | 2018-12-14 20:54 | NUR ---
PAGED DR. DOS SANTOS, RE: MED RECONCILIATION.
[2018-12-14] MEDS: CARVEDILOL 6.25 MG TABLET PO SCH (21:19)
[2018-12-14] MEDS: METOPROLOL TARTRATE 25 MG TABLET PO SCH (21:19)
[2018-12-14] MEDS: GABAPENTIN 300 MG CAPSULE PO SCH (21:20)
[2018-12-14] MEDS: oxyCODONE HCL SR 10MG TAB.SR.12H PO SCH (21:21)
[2018-12-15 08:00] VITALS: BP 146/92
[2018-12-15 08:05] LABS: CHOLESTEROL 142 mg/dL (<200); HDL CHOLESTEROL 46 mg/dL (40-60); LDL 76 mg/dL (0-99); TRIGLYCERIDES 102 mg/dL (30-150)
[2018-12-15 08:07] LABS: ALANINE AMINOTRANSFERASE 13 U/L (12-78); ALBUMIN 3.2 g/dL (3.4-5.0); ALKALINE PHOSPHATASE 42 U/L (46-116); ASPARTATE AMINOTRANSFERASE 11 U/L (15-37); BILIRUBIN,TOTAL 0.2 mg/dL (0.2-1.0); CARBON DIOXIDE 22 mmol/L (21-32); CHLORIDE 105 mmol/L (98-107); CREATININE 0.8 mg/dL (0.6-1.3); GLUCOSE 116 mg/dL (74-106); POTASSIUM 3.7 mmol/L (3.5-5.1); SODIUM SERUM 138 mmol/L (136-145); UREA NITROGEN, BLOOD 22 mg/dL (7-18)
[2018-12-15] MEDS: THIAMINE HCL 100 MG TABLET PO SCH (08:23)
[2018-12-15] MEDS: ZINC SULFATE 220 MG CAPSULE PO SCH (08:23)
[2018-12-15] MEDS: AMLODIPINE BESYLATE 5 MG TABLET PO SCH (08:23)
[2018-12-15] MEDS: METOPROLOL TARTRATE 25 MG TABLET PO SCH ×2 (08:24→16:24)
[2018-12-15] MEDS: GABAPENTIN 300 MG CAPSULE PO SCH ×3 (08:25→16:23)
[2018-12-15] MEDS: oxyCODONE HCL SR 10MG TAB.SR.12H PO SCH ×2 (08:25→20:27)
[2018-12-15] MEDS: ASCORBIC ACID 500 MG TABLET PO SCH ×2 (08:25→16:22)
[2018-12-15] MEDS: MULTIVITAMINS,THERAGRAN 1 UDTAB TABLET PO SCH (08:25)
[2018-12-15] MEDS: FOLIC ACID 1 MG TABLET PO SCH (08:25)
[2018-12-15] MEDS: CARVEDILOL 6.25 MG TABLET PO SCH ×2 (08:25→16:23)
--- NOTE | 2018-12-15 09:10 | NUR ---
MATY contacted Femi, nursing administrator at [facility] [address] [place] [address] who stated pt is able to return to the facility once stable.
--- NOTE | 2018-12-15 09:13 | NUR ---
SW contacted pts son Memo [phone] for collateral information and discharge planning and also to discuss pts treatment plan. MATY left voicecoil for callback.
--- NOTE | 2018-12-15 09:41 | NUR ---
WOUND CARE CONSULT: PT PRESENTS WITH ITCHING FEET, LONG TOENAILS AND SOME SACRAL SCARRING, PRESENT ON ADMISSION. RECOMMEND DPM CONSULT. DR HOOD NOTIFIED OF CONSULT REQUEST. PT CONTINENT AT THIS TIME BUT INSISTS ON WEARING A DIAPER. PT IS AMBULATORY PER NURSING STAFF. WILL SEE PRN.
--- NOTE | 2018-12-15 10:18 | NUR ---
INITIAL DISCHARGE PLAN: Pt will return to [facility] [address] [place] [address] . MATY contacted Femi, firewall administrator who stated pt is able to return once stable for discharge. MATY will help form a safe and proper discharge in collaboration with .
--- NOTE | 2018-12-15 10:21 | NUR ---
RN NOTES PATIENT SEEN BY WOUND NURSE JEANIE WITH REQUEST TO TAKE PHOTO OF SACRAL SCAR. PHOTO WAS TAKEN AND FILED IN CHART. WILL CONTINUE TO MONITOR.
--- NOTE | 2018-12-15 15:08 | NUR ---
Group note: Pt was encouraged to join group therapy session on 12/15/18 at 2:00pm. Pt. unable to attend group.
[2018-12-15 16:00] VITALS: BP 117/73
[2018-12-15] MEDS: ESCITALOPRAM OXALATE (10 MG) 10 MG TABLET PO SCH (17:35)
[2018-12-15 20:10] VITALS: BP 97/59
[2018-12-15] MEDS: MIRTAZAPINE 15 MG TABLET PO SCH (23:00)
[2018-12-15] MEDS: ARIPIPRAZOLE 5 MG TABLET PO SCH (23:00)
[2018-12-16] MEDS ORDERED: LORAZEPAM INJ 2 MG/ML VIAL ONE (07:59)
[2018-12-16 08:00] VITALS: BP 128/64
[2018-12-16] MEDS: ASCORBIC ACID 500 MG TABLET PO SCH ×2 (09:35→17:47)
[2018-12-16] MEDS: GABAPENTIN 300 MG CAPSULE PO SCH ×3 (09:36→17:47)
[2018-12-16] MEDS: CARVEDILOL 6.25 MG TABLET PO SCH ×2 (09:36→17:47)
[2018-12-16] MEDS: METOPROLOL TARTRATE 25 MG TABLET PO SCH ×2 (09:36→17:47)
[2018-12-16] MEDS: ESCITALOPRAM OXALATE (10 MG) 10 MG TABLET PO SCH (09:36)
[2018-12-16] MEDS: AMLODIPINE BESYLATE 5 MG TABLET PO SCH (09:37)
[2018-12-16] MEDS: FOLIC ACID 1 MG TABLET PO SCH (09:37)
[2018-12-16] MEDS: MULTIVITAMINS,THERAGRAN 1 UDTAB TABLET PO SCH (09:40)
[2018-12-16] MEDS: oxyCODONE HCL SR 10MG TAB.SR.12H PO SCH ×2 (09:42→20:34)
[2018-12-16] MEDS: THIAMINE HCL 100 MG TABLET PO SCH (09:43)
[2018-12-16] MEDS: ZINC SULFATE 220 MG CAPSULE PO SCH (09:43)
[2018-12-16] MEDS: CLOTRIMAZOLE 1% 15 GM TUBE TP SCH ×2 (13:57→17:48)
[2018-12-16 16:00] VITALS: BP 134/79
--- NOTE | 2018-12-16 18:00 | NUR ---
STATES CREAM FOR FEET HELPING.RESTING IN BED THIS AFTERNOON.
[2018-12-16 19:41] VITALS: BP 123/68
[2018-12-16] MEDS: MIRTAZAPINE 15 MG TABLET PO SCH (21:18)
[2018-12-16] MEDS: ARIPIPRAZOLE 5 MG TABLET PO SCH (21:18)
--- NOTE | 2018-12-17 06:21 | NUR ---
PATIENT WAS FOUND ON THE FLOOR, SHE STATED SHE WAS ON HER WAY TO THE TOILET, SHE FELL ON THE FLOOR. GENERAL BODY ASSESSMENT DONE, NO BRUISES, NO SKIN DISCOLORATION, NO SWELLING NOTED. PATIENT WAS ASSISTED BACK TO HER BED WITH ASSISTANCE, RANGE OF MOTION SATISFACTORY, OFFERED PAIN MEDS, DENIES ANY PAIN. SATISFACTORY. ABLE TO MOVE BOTH UPPER AND LOWER EXTREMITIES. VITALS SATISFACTORY, 120/60, 75, 18, 60, 97.897% SATURATION ON ROOM AIR. SONSIOBHAN WAS NOTIFIED, LEFT A MESSAGE VIA ANSWERING MACHINE, . RN GAME FARM HELPER MADE AWARE. DR. DOS SANTOS WAS PAGED ABOUT THE INCIDENT. SPOKE TO STAFF ASSIGNED AT THE TIME AND OTHER STAFF TO PREVENT FURTHER FALL INCIDENT, KEEP BED LOCKED AND PLACED ON LOWEST POSITION, KEEP BED ALARM ON, SIDE RAILS UP AT ALL TIMES, CALL CHACKO CLOSE TO PATIENT. FALL RISK BAND ON AND ROUNDING Q 2 HOURS. WILL CONTINUE TO MONITOR FOR SAFETY AND BEHAVIOR.
[2018-12-17 08:00] VITALS: BP 121/72
[2018-12-17] MEDS: THIAMINE HCL 100 MG TABLET PO SCH (09:38)
[2018-12-17] MEDS: MULTIVITAMINS,THERAGRAN 1 UDTAB TABLET PO SCH (09:38)
[2018-12-17] MEDS: METOPROLOL TARTRATE 25 MG TABLET PO SCH ×2 (09:38→16:52)
[2018-12-17] MEDS: ESCITALOPRAM OXALATE (10 MG) 10 MG TABLET PO SCH (09:38)
[2018-12-17] MEDS: CARVEDILOL 6.25 MG TABLET PO SCH ×2 (09:39→16:53)
[2018-12-17] MEDS: ASCORBIC ACID 500 MG TABLET PO SCH ×2 (09:39→16:52)
[2018-12-17] MEDS: ZINC SULFATE 220 MG CAPSULE PO SCH (09:39)
[2018-12-17] MEDS: FOLIC ACID 1 MG TABLET PO SCH (09:39)
[2018-12-17] MEDS: AMLODIPINE BESYLATE 5 MG TABLET PO SCH (09:39)
[2018-12-17] MEDS: GABAPENTIN 300 MG CAPSULE PO SCH ×3 (09:39→16:52)
[2018-12-17] MEDS: CLOTRIMAZOLE 1% 15 GM TUBE TP SCH ×2 (12:03→16:56)
--- NOTE | 2018-12-17 13:10 | NUR ---
Pain is generalized. Tolerating meal and oral neurontin well.
[2018-12-17 16:00] VITALS: BP 123/73
--- NOTE | 2018-12-17 18:57 | NUR ---
Patient daughter in law called and was asking if the patient would discharge home. Compliance Representative Dealer educated discharge when the doctor orders.
--- NOTE | 2018-12-17 19:28 | NUR ---
Patient endorsed to JUDITH Melgar (Gia).
[2018-12-17] MEDS: oxyCODONE HCL SR 10MG TAB.SR.12H PO SCH (21:00)
[2018-12-17 21:10] VITALS: BP 92/60
[2018-12-17] MEDS: MIRTAZAPINE 15 MG TABLET PO SCH (21:37)
[2018-12-17] MEDS: ARIPIPRAZOLE 5 MG TABLET PO SCH (21:38)
[2018-12-18 08:00] VITALS: BP 129/62
[2018-12-18] MEDS: ESCITALOPRAM OXALATE (10 MG) 10 MG TABLET PO SCH (08:32)
[2018-12-18] MEDS: ZINC SULFATE 220 MG CAPSULE PO SCH (08:32)
[2018-12-18] MEDS: AMLODIPINE BESYLATE 5 MG TABLET PO SCH (08:33)
[2018-12-18] MEDS: FOLIC ACID 1 MG TABLET PO SCH (08:33)
[2018-12-18] MEDS: CARVEDILOL 6.25 MG TABLET PO SCH ×2 (08:35→16:48)
[2018-12-18] MEDS: oxyCODONE HCL SR 10MG TAB.SR.12H PO SCH ×2 (08:35→21:16)
[2018-12-18] MEDS: MULTIVITAMINS,THERAGRAN 1 UDTAB TABLET PO SCH (08:35)
[2018-12-18] MEDS: THIAMINE HCL 100 MG TABLET PO SCH (08:36)
[2018-12-18] MEDS: METOPROLOL TARTRATE 25 MG TABLET PO SCH ×2 (08:36→16:49)
[2018-12-18] MEDS: ASCORBIC ACID 500 MG TABLET PO SCH ×2 (08:36→16:49)
[2018-12-18] MEDS: GABAPENTIN 300 MG CAPSULE PO SCH ×3 (08:37→16:49)
[2018-12-18] MEDS: CLOTRIMAZOLE 1% 15 GM TUBE TP SCH ×2 (12:36→16:59)
--- NOTE | 2018-12-18 15:40 | NUR ---
GROUP NOTE: Pt joined group therapy on 12/18/18 at 2:00pm but was sitting away from the group when SW asked pt to join the asa'carsarmiut pt stated she did not want to and would just listen. SW prompted pt to engage in conversation and pt appeared confused with lack of insight stating, "I don't know why I am here, I'm just in pain I want to go back home."
[2018-12-18 16:00] VITALS: BP 101/63
[2018-12-18 20:30] VITALS: BP 111/61
[2018-12-18] MEDS: ARIPIPRAZOLE 5 MG TABLET PO SCH (21:16)
[2018-12-18] MEDS: MIRTAZAPINE 15 MG TABLET PO SCH (21:17)
[2018-12-19 08:00] VITALS: BP 117/69
[2018-12-19] MEDS: ASCORBIC ACID 500 MG TABLET PO SCH ×2 (09:35→17:05)
[2018-12-19] MEDS: ZINC SULFATE 220 MG CAPSULE PO SCH (09:35)
[2018-12-19] MEDS: THIAMINE HCL 100 MG TABLET PO SCH (09:35)
[2018-12-19] MEDS: MULTIVITAMINS,THERAGRAN 1 UDTAB TABLET PO SCH (09:36)
[2018-12-19] MEDS: oxyCODONE HCL SR 10MG TAB.SR.12H PO SCH ×2 (09:36→21:05)
[2018-12-19] MEDS: GABAPENTIN 300 MG CAPSULE PO SCH ×3 (09:36→17:05)
[2018-12-19] MEDS: AMLODIPINE BESYLATE 5 MG TABLET PO SCH (09:37)
[2018-12-19] MEDS: FOLIC ACID 1 MG TABLET PO SCH (09:37)
[2018-12-19] MEDS: CARVEDILOL 6.25 MG TABLET PO SCH ×2 (09:38→17:05)
[2018-12-19] MEDS: METOPROLOL TARTRATE 25 MG TABLET PO SCH ×2 (09:38→17:06)
[2018-12-19] MEDS: ESCITALOPRAM OXALATE (10 MG) 10 MG TABLET PO SCH (09:38)
[2018-12-19] MEDS: CLOTRIMAZOLE 1% 15 GM TUBE TP SCH ×2 (09:41→17:10)
--- NOTE | 2018-12-19 15:20 | NUR ---
Group Note: Pt was encouraged to attend group therapy on 12/19/18 at 2pm discussing the topic of their goals in areas of both their hospitalization and their personal life but the pt stated that she wanted to remain in her room.
[2018-12-19 16:00] VITALS: BP 108/71
[2018-12-19 20:30] VITALS: BP 115/55
[2018-12-19] MEDS: ARIPIPRAZOLE 5 MG TABLET PO SCH (21:06)
[2018-12-19] MEDS: MIRTAZAPINE 15 MG TABLET PO SCH (21:07)
[2018-12-20 08:00] VITALS: BP 123/69
[2018-12-20] MEDS: CARVEDILOL 6.25 MG TABLET PO SCH ×2 (08:00→16:14)
[2018-12-20] MEDS: ZINC SULFATE 220 MG CAPSULE PO SCH (08:00)
[2018-12-20] MEDS: MULTIVITAMINS,THERAGRAN 1 UDTAB TABLET PO SCH (08:00)
[2018-12-20] MEDS: THIAMINE HCL 100 MG TABLET PO SCH (08:00)
[2018-12-20] MEDS: GABAPENTIN 300 MG CAPSULE PO SCH ×3 (08:00→16:14)
[2018-12-20] MEDS: ESCITALOPRAM OXALATE (10 MG) 10 MG TABLET PO SCH (08:00)
[2018-12-20] MEDS: AMLODIPINE BESYLATE 5 MG TABLET PO SCH (08:01)
[2018-12-20] MEDS: METOPROLOL TARTRATE 25 MG TABLET PO SCH ×2 (08:01→16:15)
[2018-12-20] MEDS: FOLIC ACID 1 MG TABLET PO SCH (08:01)
[2018-12-20] MEDS: ASCORBIC ACID 500 MG TABLET PO SCH ×2 (08:01→16:14)
[2018-12-20] MEDS: oxyCODONE HCL SR 10MG TAB.SR.12H PO SCH ×2 (08:02→20:16)
[2018-12-20] MEDS: CLOTRIMAZOLE 1% 15 GM TUBE TP SCH ×2 (08:02→16:15)
[2018-12-20] MEDS: ACETAMINOPHEN 325 MG TABLET PO PRN ×2 (09:07→16:20)
--- NOTE | 2018-12-20 11:07 | NUR ---
RN NOTE: PATIENT WAS COMPLAINING OF A HEADACHE. PRN TYLENOL WAS GIVEN. PATIENT WAS RE-ASSESSED AND STATED HEADACHE HAS GONE DOWN A BIT AND SHE IS ENJOYING THE PEACE AND QUIET.
--- NOTE | 2018-12-20 15:20 | NUR ---
GROUP NOTE: MATY prompted pt tot attend group therapy on 12/20/18 at 1400 pt refused stating, " No, I don't want to I will just stay in my room today."
[2018-12-20 16:00] VITALS: BP 122/70
--- NOTE | 2018-12-20 16:21 | NUR ---
RN NOTE: PATIENT WAS COMPLAINING OF PAIN 5/10. TYLENOL PRN PO WAS GIVEN TO HELP ALLEVIATE PAIN.
[2018-12-20 20:00] VITALS: BP 107/56
[2018-12-20] MEDS: MIRTAZAPINE 15 MG TABLET PO SCH (21:10)
[2018-12-20] MEDS: ARIPIPRAZOLE 5 MG TABLET PO SCH (21:10)
[2018-12-21 08:00] VITALS: BP 123/73
[2018-12-21] MEDS: ZINC SULFATE 220 MG CAPSULE PO SCH (09:25)
[2018-12-21] MEDS: CLOTRIMAZOLE 1% 15 GM TUBE TP SCH ×2 (09:25→16:58)
[2018-12-21] MEDS: THIAMINE HCL 100 MG TABLET PO SCH (09:26)
[2018-12-21] MEDS: MULTIVITAMINS,THERAGRAN 1 UDTAB TABLET PO SCH (09:26)
[2018-12-21] MEDS: ASCORBIC ACID 500 MG TABLET PO SCH ×2 (09:26→16:57)
[2018-12-21] MEDS: AMLODIPINE BESYLATE 5 MG TABLET PO SCH (09:26)
[2018-12-21] MEDS: ESCITALOPRAM OXALATE (10 MG) 10 MG TABLET PO SCH (09:27)
[2018-12-21] MEDS: FOLIC ACID 1 MG TABLET PO SCH (09:27)
[2018-12-21] MEDS: GABAPENTIN 300 MG CAPSULE PO SCH ×3 (09:27→16:57)
[2018-12-21] MEDS: METOPROLOL TARTRATE 25 MG TABLET PO SCH ×2 (09:27→16:59)
[2018-12-21] MEDS: CARVEDILOL 6.25 MG TABLET PO SCH ×2 (09:27→16:58)
[2018-12-21] MEDS: oxyCODONE HCL SR 10MG TAB.SR.12H PO SCH ×2 (09:33→20:29)
--- NOTE | 2018-12-21 10:29 | NUR ---
MATY faxed SNF referral to Glory, home health care coordinator at [facility] Address: [address] [facility], [place] [address] for review.
--- NOTE | 2018-12-21 10:29 | NUR ---
MATY received a call from pts son Memo [phone] stating he was pts DPOA SW requested he fax DPOA paperwork and also informed him Psychiatrist had attempted to contact him along with SW to discuss pts treatment and discharge. Son stated that he had received the voicemail's but did not want to call back as he stated he is tired of dealing with pts frequent hospitalizations and different diagnosis. MATY informed him that psychiatrist is recommending pt be discharged to a SNF as pt requires a lot of assistance and is unable to care for herself. Son agreed and stated he wishes for pt to be discharged to a SNF and also stated he would be faxing over DPOA paperwork.
--- NOTE | 2018-12-21 14:57 | NUR ---
SW received a call from marybel Almodovar at [facility] Address: [address], [place] [address] stating pt cannot be accepted due to her recent craniotomy and it being too dangerous for them to accept.
[2018-12-21 16:00] VITALS: BP 103/59
[2018-12-21 20:00] VITALS: BP 116/77
[2018-12-21] MEDS: ARIPIPRAZOLE 5 MG TABLET PO SCH (21:47)
[2018-12-21] MEDS: MIRTAZAPINE 15 MG TABLET PO SCH (21:47)
[2018-12-22 08:00] VITALS: BP 118/73
[2018-12-22] MEDS: CLOTRIMAZOLE 1% 15 GM TUBE TP SCH ×2 (08:26→17:01)
[2018-12-22] MEDS: METOPROLOL TARTRATE 25 MG TABLET PO SCH ×2 (08:27→16:46)
[2018-12-22] MEDS: MULTIVITAMINS,THERAGRAN 1 UDTAB TABLET PO SCH (08:27)
[2018-12-22] MEDS: AMLODIPINE BESYLATE 5 MG TABLET PO SCH (08:27)
[2018-12-22] MEDS: ESCITALOPRAM OXALATE (10 MG) 10 MG TABLET PO SCH (08:27)
[2018-12-22] MEDS: THIAMINE HCL 100 MG TABLET PO SCH (08:27)
[2018-12-22] MEDS: GABAPENTIN 300 MG CAPSULE PO SCH ×3 (08:27→17:02)
[2018-12-22] MEDS: ZINC SULFATE 220 MG CAPSULE PO SCH (08:27)
[2018-12-22] MEDS: oxyCODONE HCL SR 10MG TAB.SR.12H PO SCH ×2 (08:28→20:19)
[2018-12-22] MEDS: CARVEDILOL 6.25 MG TABLET PO SCH ×2 (08:28→17:02)
[2018-12-22] MEDS: FOLIC ACID 1 MG TABLET PO SCH (08:28)
[2018-12-22] MEDS: ASCORBIC ACID 500 MG TABLET PO SCH ×2 (08:31→17:02)
--- NOTE | 2018-12-22 09:07 | NUR ---
MATY faxed SNF referral to Luba, patient accounts coordinator at [facility] Address: [address] [facility] [address] [facility]. [facility] [address] for review.
--- NOTE | 2018-12-22 11:21 | NUR ---
Linette [facility] staff arrived at unit to conduct assessment with pt. Staff states they will inform SW of assessment outcome regarding pt's acceptance to facility.
--- NOTE | 2018-12-22 12:00 | NUR ---
Group Note: SW encouraged pt to attend group therapy on 12/22/18 at 11:30am discussing social supports for when they are in the hospital and for once they are discharged but the pt refused to attend. She stated I dont need that, and went back to sleep.
[2018-12-22 16:00] VITALS: BP 106/65
--- NOTE | 2018-12-22 17:56 | NUR ---
RN-CO: CALLED COSME GONZALES EXWCZNIWVCH-[phone] AND LEFT A VOICE MAIL TO SEE THE PATIENT PER DR FENTON'S ORDER.
[2018-12-22 20:00] VITALS: BP 111/60
[2018-12-22] MEDS: ARIPIPRAZOLE 5 MG TABLET PO SCH (21:12)
[2018-12-22] MEDS: MIRTAZAPINE 15 MG TABLET PO SCH (21:12)
[2018-12-23 08:04] VITALS: BP 123/70
[2018-12-23] MEDS: oxyCODONE HCL SR 10MG TAB.SR.12H PO SCH ×2 (08:19→21:08)
[2018-12-23] MEDS: METOPROLOL TARTRATE 25 MG TABLET PO SCH ×2 (09:54→17:00)
[2018-12-23] MEDS: ZINC SULFATE 220 MG CAPSULE PO SCH (09:55)
[2018-12-23] MEDS: GABAPENTIN 300 MG CAPSULE PO SCH ×3 (09:55→18:08)
[2018-12-23] MEDS: MULTIVITAMINS,THERAGRAN 1 UDTAB TABLET PO SCH (09:55)
[2018-12-23] MEDS: ASCORBIC ACID 500 MG TABLET PO SCH ×2 (09:55→18:08)
[2018-12-23] MEDS: ESCITALOPRAM OXALATE (10 MG) 10 MG TABLET PO SCH (09:55)
[2018-12-23] MEDS: FOLIC ACID 1 MG TABLET PO SCH (09:55)
[2018-12-23] MEDS: CARVEDILOL 6.25 MG TABLET PO SCH ×2 (09:56→17:00)
[2018-12-23] MEDS: AMLODIPINE BESYLATE 5 MG TABLET PO SCH (12:00)
[2018-12-23] MEDS: CLOTRIMAZOLE 1% 15 GM TUBE TP SCH ×2 (12:01→18:20)
[2018-12-23] MEDS: THIAMINE HCL 100 MG TABLET PO SCH (12:01)
--- NOTE | 2018-12-23 15:09 | NUR ---
SLEEPING GOOD PART OF DAY,BUT AROUSABLE.
[2018-12-23 16:20] VITALS: BP 91/59
[2018-12-23] MEDS: ACETAMINOPHEN 325 MG TABLET PO PRN (18:51)
--- NOTE | 2018-12-23 18:55 | NUR ---
MEDICATED X2 FOR HEADACHE WITH TYLENOL 650 MG PO.
[2018-12-23 20:00] VITALS: BP 116/69
[2018-12-23] MEDS: MIRTAZAPINE 15 MG TABLET PO SCH (22:01)
[2018-12-23] MEDS: ARIPIPRAZOLE 5 MG TABLET PO SCH (22:01)
[2018-12-24 08:00] VITALS: BP 119/70
[2018-12-24] MEDS: ESCITALOPRAM OXALATE (10 MG) 10 MG TABLET PO SCH (10:05)
[2018-12-24] MEDS: ASCORBIC ACID 500 MG TABLET PO SCH ×2 (10:05→18:09)
[2018-12-24] MEDS: GABAPENTIN 300 MG CAPSULE PO SCH ×3 (10:05→18:09)
[2018-12-24] MEDS: FOLIC ACID 1 MG TABLET PO SCH (10:05)
[2018-12-24] MEDS: THIAMINE HCL 100 MG TABLET PO SCH (10:06)
[2018-12-24] MEDS: AMLODIPINE BESYLATE 5 MG TABLET PO SCH (10:06)
[2018-12-24] MEDS: MULTIVITAMINS,THERAGRAN 1 UDTAB TABLET PO SCH (10:06)
[2018-12-24] MEDS: ZINC SULFATE 220 MG CAPSULE PO SCH (10:06)
[2018-12-24] MEDS: METOPROLOL TARTRATE 25 MG TABLET PO SCH ×2 (10:07→18:10)
[2018-12-24] MEDS: CLOTRIMAZOLE 1% 15 GM TUBE TP SCH ×2 (10:12→17:55)
[2018-12-24] MEDS: CARVEDILOL 6.25 MG TABLET PO SCH ×2 (10:12→18:10)
[2018-12-24] MEDS: oxyCODONE HCL SR 10MG TAB.SR.12H PO SCH ×2 (10:14→21:29)
[2018-12-24 16:10] VITALS: BP 122/79
[2018-12-24 20:00] VITALS: BP 122/74
[2018-12-24] MEDS: MIRTAZAPINE 15 MG TABLET PO SCH (21:29)
[2018-12-24] MEDS: ARIPIPRAZOLE 5 MG TABLET PO SCH (21:29)
[2018-12-25 08:00] VITALS: BP 116/71
[2018-12-25] MEDS: CARVEDILOL 6.25 MG TABLET PO SCH ×2 (08:51→16:57)
[2018-12-25] MEDS: METOPROLOL TARTRATE 25 MG TABLET PO SCH ×2 (08:52→16:58)
[2018-12-25] MEDS: ESCITALOPRAM OXALATE (10 MG) 10 MG TABLET PO SCH (08:52)
[2018-12-25] MEDS: FOLIC ACID 1 MG TABLET PO SCH (08:53)
[2018-12-25] MEDS: MULTIVITAMINS,THERAGRAN 1 UDTAB TABLET PO SCH (08:53)
[2018-12-25] MEDS: AMLODIPINE BESYLATE 5 MG TABLET PO SCH (08:53)
[2018-12-25] MEDS: THIAMINE HCL 100 MG TABLET PO SCH (08:53)
[2018-12-25] MEDS: GABAPENTIN 300 MG CAPSULE PO SCH ×3 (08:54→16:56)
[2018-12-25] MEDS: CLOTRIMAZOLE 1% 15 GM TUBE TP SCH ×2 (08:58→16:59)
[2018-12-25] MEDS: ZINC SULFATE 220 MG CAPSULE PO SCH (09:02)
[2018-12-25] MEDS: oxyCODONE HCL SR 10MG TAB.SR.12H PO SCH ×2 (09:02→21:10)
[2018-12-25] MEDS: ASCORBIC ACID 500 MG TABLET PO SCH ×2 (09:02→16:57)
--- NOTE | 2018-12-25 11:20 | NUR ---
Group Note: SW encouraged pt to attend group therapy on 12/25/18 at 9:30 discussing anger management for when they are in the hospital and for once they are discharged but the pt was unable to attend. Pt is sleeping and is not easily aroused.
[2018-12-25 16:00] VITALS: BP 112/78
[2018-12-25 19:36] VITALS: BP 119/73
[2018-12-25] MEDS: MIRTAZAPINE 15 MG TABLET PO SCH (21:11)
[2018-12-25] MEDS: ARIPIPRAZOLE 5 MG TABLET PO SCH (21:11)
[2018-12-26 07:59] LABS: BASOPHILS % (AUTO) 0.5 % (0.0-2.0); EOSINOPHILS % (AUTO) 2.5 % (0.0-6.0); HEMATOCRIT 38 % (33-45); HEMOGLOBIN 12.6 g/dL (11.5-14.8); LYMPHOCYTES # (AUTO) 2.4 /CMM (0.8-4.8); LYMPHOCYTES % (AUTO) 36.1 % (20.0-44.0); MEAN CORPUSCULAR HGB CONC 33 g/dl (31.0-36.0); MEAN CORPUSCULAR VOLUME 86 fL (82-100); MONOCYTES # (AUTO) 0.7 /CMM (0.1-1.30); MONOCYTES % (AUTO) 10.9 % (2.0-12.0); NEUTROPHILS # (AUTO) 3.3 /CMM (1.8-8.9); PLATELET COUNT (AUTO) 328 /CMM (150-450); RED BLOOD CELL COUNT(AUTO) 4.48 MIL/uL (4.0-5.2); WHITE BLOOD COUNT (AUTO) 6.5 K/uL (4.3-11.0)
[2018-12-26 08:00] VITALS: BP 120/73
[2018-12-26 08:04] LABS: CALCIUM, SERUM 8.9 mg/dL (8.5-10.1); CARBON DIOXIDE 29 mmol/L (21-32); CHLORIDE 102 mmol/L (98-107); CREATININE 0.9 mg/dL (0.6-1.3); GLUCOSE 93 mg/dL (74-106); MAGNESIUM 1.6 mg/dL (1.8-2.4); PHOSPHORUS 5.2 mg/dL (2.5-4.9); POTASSIUM 4.1 mmol/L (3.5-5.1); SODIUM SERUM 140 mmol/L (136-145); UREA NITROGEN, BLOOD 24 mg/dL (7-18)
[2018-12-26] MEDS: GABAPENTIN 300 MG CAPSULE PO SCH ×3 (08:39→17:04)
[2018-12-26] MEDS: ESCITALOPRAM OXALATE (10 MG) 10 MG TABLET PO SCH (08:39)
[2018-12-26] MEDS: MULTIVITAMINS,THERAGRAN 1 UDTAB TABLET PO SCH (08:39)
[2018-12-26] MEDS: ZINC SULFATE 220 MG CAPSULE PO SCH (08:39)
[2018-12-26] MEDS: ASCORBIC ACID 500 MG TABLET PO SCH ×2 (08:39→17:05)
[2018-12-26] MEDS: FOLIC ACID 1 MG TABLET PO SCH (08:40)
[2018-12-26] MEDS: THIAMINE HCL 100 MG TABLET PO SCH (08:40)
[2018-12-26] MEDS: AMLODIPINE BESYLATE 5 MG TABLET PO SCH (08:41)
[2018-12-26] MEDS: METOPROLOL TARTRATE 25 MG TABLET PO SCH ×2 (08:41→17:06)
[2018-12-26] MEDS: CARVEDILOL 6.25 MG TABLET PO SCH ×2 (08:42→17:05)
[2018-12-26] MEDS: oxyCODONE HCL SR 10MG TAB.SR.12H PO SCH ×2 (08:43→20:43)
[2018-12-26] MEDS: CLOTRIMAZOLE 1% 15 GM TUBE TP SCH ×2 (08:43→17:05)
--- NOTE | 2018-12-26 09:36 | NUR ---
Pawan ([phone]) from [facility] contacted the SW and stated that the pt was accepted.
[2018-12-26] MEDS ORDERED: MAGNESIUM OXIDE 400 MG TABLET PO ONE ×2 (11:00→11:30)
--- NOTE | 2018-12-26 13:58 | NUR ---
MATY contacted pts son Memo [phone] to inform him pt will be discharging on Tuesday12/27/18 at 1:00pm to [facility], son agreed with discharge plan.
--- NOTE | 2018-12-26 15:45 | NUR ---
GROUP NOTE: MATY prompted pt tot attend group therapy on 12/26/18 at 1400 pt refused stating, " No, I don't want to I will just stay in my room today."
[2018-12-26 16:00] VITALS: BP 133/76
--- NOTE | 2018-12-26 19:47 | NUR ---
GPS RN NOTE, RECEIVED PATIENT AWAKE AND IN BED, NO S/S OR COMPLAINTS OF PAIN AT THIS TIME. PATIENT IS DISPLAYING NO S/S OF APPARENT DISTRESS AT THIS TIME. PATIENT BREATHING IS UNLABORED WITH EQUAL RISE AND FALL OF THE CHEST. PATIENT IS ALERT AND ORIENTED X 3 ON ROOM AIR WITH A SPO2 OF 95 %. PATIENT IS MED COMPLAINT, DISORGANIZED, CONFUSED AT TIMES, COOPERATIVE, AND NEEDS REORIENTATION. PATIENT DENIES SUICIDE AND HOMICIDAL IDEATIONS AT THIS TIME. PATIENT ASSISTED WITH TURNING AND REPOSITIONING Q2HR AND PRN FOR COMFORT AND CIRCULATION. PATIENT HAS NO NEEDS AT THIS TIME. PATIENT EDUCATED ON THE USE OF THE CALL CHACKO. PATIENT BED SIDE RAILS ARE UP X 2 FOR SAFETY, BED IS LOCKED, AND LOW WILL CONTINUE TO MONITOR AND MAINTAIN SAFETY.
[2018-12-26 20:26] VITALS: BP 108/67
[2018-12-26] MEDS: ARIPIPRAZOLE 5 MG TABLET PO SCH (21:53)
[2018-12-26] MEDS: MIRTAZAPINE 15 MG TABLET PO SCH (21:54)
[2018-12-27 08:00] VITALS: BP 115/72
[2018-12-27] MEDS: oxyCODONE HCL SR 10MG TAB.SR.12H PO SCH (08:29)
[2018-12-27] MEDS: MULTIVITAMINS,THERAGRAN 1 UDTAB TABLET PO SCH (08:29)
[2018-12-27] MEDS: ESCITALOPRAM OXALATE (10 MG) 10 MG TABLET PO SCH (08:29)
[2018-12-27] MEDS: FOLIC ACID 1 MG TABLET PO SCH (08:29)
[2018-12-27] MEDS: ASCORBIC ACID 500 MG TABLET PO SCH (08:29)
[2018-12-27] MEDS: GABAPENTIN 300 MG CAPSULE PO SCH ×2 (08:29→12:29)
[2018-12-27 08:30] VITALS: BP 115/72
[2018-12-27] MEDS: AMLODIPINE BESYLATE 5 MG TABLET PO SCH (08:30)
[2018-12-27] MEDS: THIAMINE HCL 100 MG TABLET PO SCH (08:30)
[2018-12-27] MEDS: CARVEDILOL 6.25 MG TABLET PO SCH (08:30)
[2018-12-27] MEDS: METOPROLOL TARTRATE 25 MG TABLET PO SCH (08:30)
[2018-12-27] MEDS: ZINC SULFATE 220 MG CAPSULE PO SCH (08:30)
[2018-12-27] MEDS: CLOTRIMAZOLE 1% 15 GM TUBE TP SCH (08:40)
[2018-12-27] MEDS ORDERED: MAGNESIUM OXIDE 400 MG TABLET PO ONE (10:30)
--- NOTE | 2018-12-27 10:32 | NUR ---
DISCHARGE NOTE: Pt will be discharged at 1:00pm via [facility]BULNZ to [facility] Address: [address] [place] [address] . Pts Son Memo [phone] has been notified and agrees with discharge plan. Pts mood is confused with congruent affect. Pt denied suicidal/homicidal ideation and denied visual/auditory hallucinations. Pt will address her substance use and continue psychiatric treatment with Psychiatrist: Dr. Gaviria Address: [address] [place] [address] and will also be treated by Phlebotomist Associate: Dr. Clint Dubon [address] [facility] [address], [place] [address] [phone]. For smoking cessation, patient was referred to the [employer] and [employer] [id number]-[id number]-BOZ. Pt will also participate in a telephone meeting with Nicotine Anonymous [phone] on December at 8:00am. The multidisciplinary exit care form was done, printed, signed, and given to the patient. Addendum: 12/27/18 at 1125 by JEFF RUTLEDGE ERROR
--- NOTE | 2018-12-27 11:20 | NUR ---
SW received a call from Shahnaz engineering coordinator at [facility] Address: [address] [facility]. [facility] [address] stating pt cannot be accepted to their facility due to not having Medicare Days.
--- NOTE | 2018-12-27 11:23 | NUR ---
MATY contacted pts son Memo [phone] and left a voicemail informing him pt will not be discharging to [facility] as pt does not have Medicare Days, MATY informed him pt will be discharging back to her [facility].
--- NOTE | 2018-12-27 11:24 | NUR ---
MATY contacted Femi, accounts payable administrator at [facility] [address] [place] [address] and informed him pt will be discharging at 1:00 to his facility. Femi agreed with discharge plan.
--- NOTE | 2018-12-27 11:34 | NUR ---
UPDATED DISCHARGE NOTE: Pt will be discharged at 1:00pm via [facility] [address] [place], [place] [address] . Pts Son Memo [phone] has been notified via voicemail. Pts mood is confused with congruent affect. Pt denied suicidal/homicidal ideation and denied visual/auditory hallucinations. Patient was provided referrals to address her alcohol use. Patient was referred to the [address] [address] / and was encouraged to present at 9am on December. Additional resources included [facility] [address] [place] [address] and [facility] [address] [place] [address] . For smoking cessation, patient was referred to the [employer] and [employer] 113-Kcwl-FBX. Pt will also participate in a telephone meeting with Nicotine Anonymous [phone] on December at 8:00am. Pt will be under the psychiatric care of Dr. Peres Address: [address] [place] [address] and Analysis Or Research Safety Inspector: Dr. Clint Dubon [address] [address] [phone]. The multidisciplinary exit care form was done, printed, signed, and given to the patient.
--- NOTE | 2018-12-27 13:20 | NUR ---
GPS RN-NOTES GPS/RN-NOTES PATIENT WAS DISCHARGE TO [facility]. DR. FENTON AND REYNALDO EM AWARE AND AGREES WITH ORDERS. ALL DISCHARGE MEDICATIONS WAS REVIEWED WITH THE PATIENT WITH UNDERSTANDING RX WAS GIVEN TO THE PATIENT.ALL DISCHARGE PAPERS INCLUDING BELONGINGS LIST WAS SIGN BY THE PATIENT.PATIENT DID NOT VERBALIZE SI/HI,DENIES VISUAL AUDITORY HALLUCINATIONS AT THE TIME OF DISCHARGE. PATIENT LEFT THE UNIT IN STABLE CONDITION ALERT ORIENTED X3 AMBULATORY USING HER OWN WALKER. SHE WAS ASSITED IN THE LOBBY FOR SAFETY.PATIENT WAS CAN CONVEYOR FEEDER BY [employer]I. DOTTIECristi'S SON JARED @ [phone] WAS MADE AWARE BY THE HOMEBOUND TEACHER REGARDING PATIENT'S DISCHARGE.
== END 2018-12-27 13:20 | DRG 885 ==
LOC: ER 12:57 → GPS 16:32
PROVIDERS: ADMIT Psychiatry & Neurology Psychiatry; ATTEND Nurse Practitioner Acute Care
DX: F33.3 Major depressive disorder, recurrent, severe with psychotic symptoms (principal); F01.50 Vascular dementia, unspecified severity, without behavioral disturbance, psychotic disturbance, mood disturbance, and anxiety; K86.1 Other chronic pancreatitis; E44.1 Mild protein-calorie malnutrition; F29 Unspecified psychosis not due to a substance or known physiological condition; E87.6 Hypokalemia; I10 Essential (primary) hypertension; F17.200 Nicotine dependence, unspecified, uncomplicated; M19.90 Unspecified osteoarthritis, unspecified site; E83.42 Hypomagnesemia; Z96.649 Presence of unspecified artificial hip joint; Z91.19 Patient's noncompliance with other medical treatment and regimen; Z79.899 Other long term (current) drug therapy; F10.20 Alcohol dependence, uncomplicated; L60.0 Ingrowing nail; B35.9 Dermatophytosis, unspecified; M20.10 Hallux valgus (acquired), unspecified foot
CPT/HCPCS: 36415; 80048-TC; 80053-TC; 80061-TC; 80076-TC; 80305; 81000-TC; 83735-TC; 84100-TC; 85025-TC; 87081-TC; G0480; J2060; Q0163; Q0177

== ENCOUNTER 2019-02-14 15:02 | Inpatient (IN) | payer MEDICARE, OTHER ==
[~2019-02-14] VITALS: Ht 170.2 cm; Wt 62.4 kg
[~2019-02-14 15:02] MED LIST changes: +AMLO5TAB9 PO; +ASCO500T9 PO; +CARV6.252 PO; -CEPH500C2 PO; +CLON0.1T PO; +FOLI1TAB16 PO; +HYDR-3024 PO; +MIRT30TA7 PO; +MULT-447 PO; +OXYB10TA2 PO; +THIA100T74 PO; +ZINC220C8 PO
[2019-02-14] MEDS ORDERED: IV NS 0.9% 1,000 ML BAG IV ONE ×3 (15:30→17:00)
[2019-02-14 15:43] LABS: BASOPHILS # (AUTO) 0.1 /CMM (0.0-0.2); BASOPHILS % (AUTO) 0.5 % (0.0-2.0); EOSINOPHILS % (AUTO) 0.1 % (0.0-6.0); HEMATOCRIT 52 % (33-45); HEMOGLOBIN 16.9 g/dL (11.5-14.8); LYMPHOCYTES % (AUTO) 14.7 % (20.0-44.0); MEAN CORPUSCULAR HGB CONC 32 g/dl (31.0-36.0); MEAN CORPUSCULAR VOLUME 85 fL (82-100); MONOCYTES # (AUTO) 1.7 /CMM (0.1-1.30); MONOCYTES % (AUTO) 8.3 % (2.0-12.0); NEUTROPHILS # (AUTO) 15.6 /CMM (1.8-8.9); NEUTROPHILS % (AUTO) 76.4 % (43.0-81.0); PLATELET COUNT (AUTO) 154 /CMM (150-450); RED BLOOD CELL COUNT(AUTO) 6.19 MIL/uL (4.0-5.2); WHITE BLOOD COUNT (AUTO) 20.5 K/uL (4.3-11.0)
[2019-02-14 16:03] LABS: ALBUMIN 3.6 g/dL (3.4-5.0); ALCOHOL, BLOOD < 3 mg/dL (0-0); ALKALINE PHOSPHATASE 89 U/L (46-116); ASPARTATE AMINOTRANSFERASE 16 U/L (15-37); BILIRUBIN,TOTAL 0.8 mg/dL (0.2-1.0); CALCIUM, SERUM 10.3 mg/dL (8.5-10.1); CARBON DIOXIDE 24 mmol/L (21-32); CHLORIDE 119 mmol/L (98-107); CREATININE 1.5 mg/dL (0.6-1.3); GLUCOSE 207 mg/dL (74-106); POTASSIUM 3.8 mmol/L (3.5-5.1); TOTAL PROTEIN, SERUM 8.3 g/dL (6.4-8.2); UREA NITROGEN, BLOOD 75 mg/dL (7-18)
[2019-02-14 16:07] LABS: SALICYLATE 0.3 mg/dL (2.8-20.0)
[2019-02-14 16:10] LABS: ACETAMINOPHEN 0 ug/ml (10-30)
[2019-02-14 16:12] LABS: SODIUM SERUM 156 mmol/L (136-145)
[2019-02-14] MEDS ORDERED: NAPR220T66 PO (16:19)
[2019-02-14 16:20] LABS: ALANINE AMINOTRANSFERASE < 6 U/L (12-78)
[2019-02-14 16:56] LABS: SERUM AMMONIA 21 umol/L (11-32)
[2019-02-14] MEDS ORDERED: PIPERACILLIN /TAZOBACTAM 3.375 G in IV D5W 50 ML IV ONE (17:00)
[2019-02-14 17:08] LABS: THYROID STIMULATING HORMONE 1.626 uIU/mL (0.358-3.74)
[2019-02-14 17:27] LABS: APPEARANCE,URINE Clear (CLEAR); BILIRUBIN,URINE SMALL (NEGATIVE); BLOOD, URINE Trace-lysed Ery/uL (NEGATIVE); COLOR,URINE Yellow (YELLOW); KETONES,URINE Trace (NEGATIVE); LEUKOCYTE ESTERASE ,URINE Negative (NEGATIVE); NITRITE, URINE Negative (NEGATIVE); PROTEIN,URINE 100 mg/dl (NEGATIVE); UGLUCOSE Negative (NEGATIVE); UROBILINOGEN,URINE 0.2 EU/dL (0.2)
[2019-02-14 17:41] LABS: BACTERIA,URINE Rare /HPF (None Seen); MUCUS,URINE Rare /LPF (None Seen); RBC,URINE 2-3/HPF /HPF (0-2); SQUAMOUS EPITHELIAL CELL,UR Few /HPF (None Seen); URINE AMORPHOUS URATE Few /HPF (None Seen); WBC,URINE 0-2 /HPF (0-3)
[2019-02-14 18:00] VITALS: BP 141/76
[2019-02-14] MEDS ORDERED: Z GUARD REMEDY 2 OZ OINT TP PRN (19:00)
[2019-02-14] MEDS ORDERED: ZOLPIDEM TARTRATE 5 MG TABLET PO PRN (19:00)
[2019-02-14] MEDS ORDERED: MAGNESIUM HYDROXIDE 30 ML UDC PO PRN (19:00)
[2019-02-14] MEDS ORDERED: ACETAMINOPHEN 325 MG TABLET PO PRN (19:00)
[2019-02-14] MEDS ORDERED: MAG HYDROX/AL HYDROX/SIMETH 30 ML UDC PO PRN (19:00)
[2019-02-14] MEDS ORDERED: ONDANSETRON HCL/PF 4 MG/2 ML VIAL IVP PRN (19:00)
[2019-02-14 20:00] VITALS: BP 148/70
[2019-02-14] MEDS: IV D5/0.45 NACL 1,000 ML IV PRN (20:28)
[2019-02-14] MEDS ORDERED: LORAZEPAM INJ 2 MG/ML VIAL IV PRN (22:30)
[2019-02-15] VITALS: BP 106/76
[2019-02-15] MEDS ORDERED: PIPERACILLIN /TAZOBACTAM 3.375 G VIAL IV ONE ×2 (00:01→05:37)
[2019-02-15] MEDS: PIPERACILLIN /TAZOBACTAM 3.375 G in IV D5W 50 ML IV SCH ×2 (00:10→05:42)
[2019-02-15] MEDS: hydrOXYzine 10 MG TABLET PO SCH ×6 (00:23→21:40)
[2019-02-15 03:13] LABS: BASOPHILS # (AUTO) 0.1 /CMM (0.0-0.2); BASOPHILS % (AUTO) 0.4 % (0.0-2.0); EOSINOPHILS % (AUTO) 0.6 % (0.0-6.0); HEMATOCRIT 37 % (33-45); HEMOGLOBIN 11.9 g/dL (11.5-14.8); LYMPHOCYTES # (AUTO) 2.3 /CMM (0.8-4.8); LYMPHOCYTES % (AUTO) 18.1 % (20.0-44.0); MEAN CORPUSCULAR HGB CONC 33 g/dl (31.0-36.0); MEAN CORPUSCULAR VOLUME 83 fL (82-100); NEUTROPHILS # (AUTO) 9.3 /CMM (1.8-8.9); NEUTROPHILS % (AUTO) 72.9 % (43.0-81.0); PLATELET COUNT (AUTO) 113 /CMM (150-450); WHITE BLOOD COUNT (AUTO) 12.7 K/uL (4.3-11.0)
[2019-02-15 03:26] LABS: ALANINE AMINOTRANSFERASE 15 U/L (12-78); ALBUMIN 2.5 g/dL (3.4-5.0); ALKALINE PHOSPHATASE 57 U/L (46-116); ASPARTATE AMINOTRANSFERASE 17 U/L (15-37); BILIRUBIN,TOTAL 0.6 mg/dL (0.2-1.0); CALCIUM, SERUM 8.1 mg/dL (8.5-10.1); CARBON DIOXIDE 24 mmol/L (21-32); CREATININE 1.2 mg/dL (0.6-1.3); GLUCOSE 122 mg/dL (74-106); MAGNESIUM 1.3 mg/dL (1.8-2.4); TOTAL PROTEIN, SERUM 5.7 g/dL (6.4-8.2); UREA NITROGEN, BLOOD 49 mg/dL (7-18)
[2019-02-15 03:39] LABS: CHLORIDE 117 mmol/L (98-107); SODIUM SERUM 151 mmol/L (136-145)
[2019-02-15 03:42] LABS: PHOSPHORUS 0.9 mg/dL (2.5-4.9); POTASSIUM 2.5 mmol/L (3.5-5.1)
[2019-02-15 04:00] VITALS: BP 131/57
[2019-02-15 04:24] LABS: CHOLESTEROL 120 mg/dL (<200); HDL CHOLESTEROL 28 mg/dL (40-60); LDL 69 mg/dL (0-99); THYROID STIMULATING HORMONE 1.647 uIU/mL (0.358-3.74); TRIGLYCERIDES 143 mg/dL (30-150)
[2019-02-15] MEDS ORDERED: POTASSIUM CHLORIDE 20 MEQ TAB.PRT.SR PO ONE (05:00)
[2019-02-15] MEDS: IV D5/0.45 NACL 1,000 ML IV PRN ×2 (06:35→06:37)
[2019-02-15 08:00] VITALS: BP 117/64
[2019-02-15] MEDS: GABAPENTIN 300 MG CAPSULE PO SCH ×3 (08:56→16:27)
[2019-02-15] MEDS: AMLODIPINE BESYLATE 5 MG TABLET PO SCH (08:56)
[2019-02-15] MEDS: ASCORBIC ACID 500 MG TABLET PO SCH ×2 (08:56→16:27)
[2019-02-15] MEDS: THIAMINE HCL 100 MG TABLET PO SCH (08:56)
[2019-02-15] MEDS: OXYBUTYNIN CHLORIDE 5 MG TABLET PO SCH (08:56)
[2019-02-15] MEDS: FOLIC ACID 1 MG TABLET PO SCH (08:56)
[2019-02-15] MEDS: ESCITALOPRAM OXALATE (10 MG) 10 MG TABLET PO SCH (08:56)
[2019-02-15] MEDS: ZINC SULFATE 220 MG CAPSULE PO SCH (08:57)
[2019-02-15] MEDS: CARVEDILOL 6.25 MG TABLET PO SCH ×2 (08:57→16:28)
[2019-02-15] MEDS: POTASSIUM PHOSPHATE MM 7.5 MMOL in IV D5W 100 ML IV SCH ×2 (08:58→12:32)
[2019-02-15] MEDS: PANTOPRAZOLE 40 MG TABLET.DR PO SCH (08:59)
[2019-02-15] MEDS: Magnesium 1GM/D5W 100ML PREMIX 100 ML IV SCH ×4 (10:19→13:19)
[2019-02-15] MEDS: PIPERACILLIN /TAZOBACTAM 3.375 G in IV D5W 100 ML IV SCH ×2 (10:20→17:58)
[2019-02-15 12:00] VITALS: BP 95/56
[2019-02-15] MEDS: HYDROCODONE/APAP 5/325MG 1 EACH TABLET PO PRN (13:31)
[2019-02-15 16:00] VITALS: BP 102/60
[2019-02-15 20:00] VITALS: BP 107/64
[2019-02-15] MEDS: MIRTAZAPINE 15 MG TABLET PO SCH (21:40)
[2019-02-16] VITALS: BP 99/55
[2019-02-16] MEDS: hydrOXYzine 10 MG TABLET PO SCH ×6 (01:31→21:08)
[2019-02-16] MEDS: PIPERACILLIN /TAZOBACTAM 3.375 G in IV D5W 100 ML IV SCH ×3 (01:32→18:11)
[2019-02-16] MEDS: IV D5/0.45 NACL 1,000 ML IV PRN ×2 (01:36→14:46)
[2019-02-16 04:00] VITALS: BP 107/65
[2019-02-16] MEDS: HYDROCODONE/APAP 5/325MG 1 EACH TABLET PO PRN (06:21)
[2019-02-16] MEDS: PANTOPRAZOLE 40 MG TABLET.DR PO SCH (07:29)
[2019-02-16 08:00] VITALS: BP 126/69
[2019-02-16] MEDS ORDERED: HYDROGEL DRESSING 90 GM TUBE TP PRN (08:30)
[2019-02-16] MEDS: ESCITALOPRAM OXALATE (10 MG) 10 MG TABLET PO SCH (08:45)
[2019-02-16] MEDS: OXYBUTYNIN CHLORIDE 5 MG TABLET PO SCH (08:46)
[2019-02-16] MEDS: CARVEDILOL 6.25 MG TABLET PO SCH ×2 (08:46→16:26)
[2019-02-16] MEDS: THIAMINE HCL 100 MG TABLET PO SCH (08:46)
[2019-02-16] MEDS: FOLIC ACID 1 MG TABLET PO SCH (08:46)
[2019-02-16] MEDS: ZINC SULFATE 220 MG CAPSULE PO SCH (08:46)
[2019-02-16] MEDS: ASCORBIC ACID 500 MG TABLET PO SCH ×2 (08:47→15:59)
[2019-02-16] MEDS: AMLODIPINE BESYLATE 5 MG TABLET PO SCH (08:47)
[2019-02-16] MEDS: GABAPENTIN 300 MG CAPSULE PO SCH ×3 (09:30→15:59)
[2019-02-16] MEDS: HYDROGEL DRESSING 90 GM TUBE TP SCH (10:11)
[2019-02-16 14:54] LABS: BASOPHILS % (AUTO) 0.2 % (0.0-2.0); EOSINOPHILS % (AUTO) 1.8 % (0.0-6.0); HEMATOCRIT 40 % (33-45); HEMOGLOBIN 12.9 g/dL (11.5-14.8); LYMPHOCYTES # (AUTO) 2.2 /CMM (0.8-4.8); LYMPHOCYTES % (AUTO) 30.5 % (20.0-44.0); MEAN CORPUSCULAR HGB CONC 33 g/dl (31.0-36.0); MEAN CORPUSCULAR VOLUME 85 fL (82-100); MONOCYTES % (AUTO) 14.4 % (2.0-12.0); NEUTROPHILS # (AUTO) 3.8 /CMM (1.8-8.9); NEUTROPHILS % (AUTO) 53.1 % (43.0-81.0); PLATELET COUNT (AUTO) 103 /CMM (150-450); RED BLOOD CELL COUNT(AUTO) 4.68 MIL/uL (4.0-5.2); WHITE BLOOD COUNT (AUTO) 7.1 K/uL (4.3-11.0)
[2019-02-16 15:07] LABS: ALANINE AMINOTRANSFERASE 13 U/L (12-78); ALBUMIN 2.4 g/dL (3.4-5.0); ALKALINE PHOSPHATASE 54 U/L (46-116); ASPARTATE AMINOTRANSFERASE 20 U/L (15-37); BILIRUBIN,TOTAL 0.3 mg/dL (0.2-1.0); CALCIUM, SERUM 7.8 mg/dL (8.5-10.1); CARBON DIOXIDE 21 mmol/L (21-32); CHLORIDE 111 mmol/L (98-107); CREATININE 1.1 mg/dL (0.6-1.3); GLUCOSE 145 mg/dL (74-106); MAGNESIUM 1.7 mg/dL (1.8-2.4); PHOSPHORUS 2.2 mg/dL (2.5-4.9); POTASSIUM 3.4 mmol/L (3.5-5.1); SODIUM SERUM 143 mmol/L (136-145); TOTAL PROTEIN, SERUM 6.1 g/dL (6.4-8.2); UREA NITROGEN, BLOOD 22 mg/dL (7-18)
[2019-02-16 15:08] LABS: CREATINE KINASE, TOTAL 88 U/L (26-192)
[2019-02-16 16:00] VITALS: BP 96/54
[2019-02-16] MEDS ORDERED: POTASSIUM CHLORIDE 20 MEQ TAB.PRT.SR PO ONE (16:00)
[2019-02-16] MEDS: Magnesium 1GM/D5W 100ML PREMIX 100 ML IV SCH ×2 (16:08→17:12)
[2019-02-16] MEDS: NEUTRA PHOS 1 POWD.PACKET PO SCH (16:45)
[2019-02-16 20:00] VITALS: BP 121/68
[2019-02-16] MEDS: MIRTAZAPINE 15 MG TABLET PO SCH (21:08)
[2019-02-17] MEDS: hydrOXYzine 10 MG TABLET PO SCH ×6 (00:57→21:49)
[2019-02-17] MEDS: PIPERACILLIN /TAZOBACTAM 3.375 G in IV D5W 100 ML IV SCH ×3 (01:09→17:35)
[2019-02-17] MEDS: IV D5/0.45 NACL 1,000 ML IV PRN ×2 (03:57→17:46)
[2019-02-17 04:00] VITALS: BP 99/50
[2019-02-17 07:25] LABS: APPEARANCE,URINE CLEAR (CLEAR); BILIRUBIN,URINE NEGATIVE (NEGATIVE); BLOOD, URINE NEGATIVE Ery/uL (NEGATIVE); COLOR,URINE OTHER (YELLOW); KETONES,URINE NEGATIVE (NEGATIVE); LEUKOCYTE ESTERASE ,URINE NEGATIVE (NEGATIVE); NITRITE, URINE NEGATIVE (NEGATIVE); PROTEIN,URINE NEGATIVE (NEGATIVE); UGLUCOSE NEGATIVE (NEGATIVE); UROBILINOGEN,URINE 0.2 EU/dL (0.2)
[2019-02-17 07:30] LABS: EOSINOPHIL,URINE None Seen
[2019-02-17] MEDS: PANTOPRAZOLE 40 MG TABLET.DR PO SCH (07:54)
[2019-02-17 08:00] VITALS: BP 120/63
[2019-02-17 08:10] LABS: CREATININE, URINE < 13.0 MG/DL (30.0-125.0); URINE SODIUM, RANDOM 57 mmol/l (40-220); URINE TOTAL PROTEIN 11.1 mg/dL (0-11.9)
[2019-02-17 08:31] LABS: BASOPHILS % (AUTO) 0.4 % (0.0-2.0); EOSINOPHILS % (AUTO) 1.7 % (0.0-6.0); HEMATOCRIT 37 % (33-45); HEMOGLOBIN 11.9 g/dL (11.5-14.8); LYMPHOCYTES # (AUTO) 2.3 /CMM (0.8-4.8); LYMPHOCYTES % (AUTO) 28.8 % (20.0-44.0); MEAN CORPUSCULAR HGB CONC 33 g/dl (31.0-36.0); MEAN CORPUSCULAR VOLUME 84 fL (82-100); MONOCYTES # (AUTO) 1.3 /CMM (0.1-1.30); MONOCYTES % (AUTO) 16.7 % (2.0-12.0); NEUTROPHILS # (AUTO) 4.2 /CMM (1.8-8.9); NEUTROPHILS % (AUTO) 52.4 % (43.0-81.0); PLATELET COUNT (AUTO) 122 /CMM (150-450); RED BLOOD CELL COUNT(AUTO) 4.37 MIL/uL (4.0-5.2); WHITE BLOOD COUNT (AUTO) 7.9 K/uL (4.3-11.0)
[2019-02-17 08:43] LABS: CALCIUM, SERUM 7.8 mg/dL (8.5-10.1); CARBON DIOXIDE 23 mmol/L (21-32); CHLORIDE 113 mmol/L (98-107); GLUCOSE 122 mg/dL (74-106); MAGNESIUM 1.7 mg/dL (1.8-2.4); PHOSPHORUS 3.4 mg/dL (2.5-4.9); POTASSIUM 3.2 mmol/L (3.5-5.1); SODIUM SERUM 146 mmol/L (136-145); UREA NITROGEN, BLOOD 15 mg/dL (7-18)
[2019-02-17] MEDS: GABAPENTIN 300 MG CAPSULE PO SCH ×3 (09:30→17:34)
[2019-02-17] MEDS: ZINC SULFATE 220 MG CAPSULE PO SCH (09:30)
[2019-02-17] MEDS: ESCITALOPRAM OXALATE (10 MG) 10 MG TABLET PO SCH (09:30)
[2019-02-17] MEDS: ASCORBIC ACID 500 MG TABLET PO SCH ×2 (09:30→17:34)
[2019-02-17] MEDS: FOLIC ACID 1 MG TABLET PO SCH (09:31)
[2019-02-17] MEDS: CARVEDILOL 6.25 MG TABLET PO SCH ×2 (09:31→17:00)
[2019-02-17] MEDS: OXYBUTYNIN CHLORIDE 5 MG TABLET PO SCH (09:31)
[2019-02-17] MEDS: AMLODIPINE BESYLATE 5 MG TABLET PO SCH (09:31)
[2019-02-17] MEDS: NEUTRA PHOS 1 POWD.PACKET PO SCH (09:31)
[2019-02-17] MEDS: THIAMINE HCL 100 MG TABLET PO SCH (09:31)
[2019-02-17] MEDS: HYDROGEL DRESSING 90 GM TUBE TP SCH (09:33)
[2019-02-17] MEDS: POTASSIUM CHLORIDE 20 MEQ TAB.PRT.SR PO SCH ×2 (09:34→10:46)
[2019-02-17] MEDS: Magnesium 1GM/D5W 100ML PREMIX 100 ML IV SCH ×2 (09:35→10:46)
[2019-02-17 13:06] LABS: PTH, INTACT 16 pg/mL (15-65)
[2019-02-17] MEDS: HYDROCODONE/APAP 5/325MG 1 EACH TABLET PO PRN (14:51)
[2019-02-17 16:00] VITALS: BP_SYST 101; BP_SYST 103; BP_DIAS 57; BP_DIAS 58
[2019-02-17 20:00] VITALS: BP 102/57
[2019-02-17] MEDS: MIRTAZAPINE 15 MG TABLET PO SCH (21:50)
[2019-02-18] MEDS: PIPERACILLIN /TAZOBACTAM 3.375 G in IV D5W 100 ML IV SCH ×3 (01:12→18:07)
[2019-02-18] MEDS: hydrOXYzine 10 MG TABLET PO SCH ×6 (01:12→22:16)
[2019-02-18 04:00] VITALS: BP 108/59
[2019-02-18] MEDS: IV D5/0.45 NACL 1,000 ML IV PRN ×2 (05:06→22:20)
[2019-02-18 06:22] LABS: CALCIUM, SERUM 7.2 mg/dL (8.5-10.1); CARBON DIOXIDE 27 mmol/L (21-32); CHLORIDE 113 mmol/L (98-107); CREATININE 0.8 mg/dL (0.6-1.3); GLUCOSE 110 mg/dL (74-106); MAGNESIUM 1.7 mg/dL (1.8-2.4); PHOSPHORUS 3.1 mg/dL (2.5-4.9); POTASSIUM 3.3 mmol/L (3.5-5.1); SODIUM SERUM 146 mmol/L (136-145); UREA NITROGEN, BLOOD 12 mg/dL (7-18)
[2019-02-18 06:29] LABS: BASOPHILS % (AUTO) 0.1 % (0.0-2.0); EOSINOPHILS % (AUTO) 1.6 % (0.0-6.0); HEMATOCRIT 34 % (33-45); HEMOGLOBIN 11.2 g/dL (11.5-14.8); LYMPHOCYTES # (AUTO) 2.2 /CMM (0.8-4.8); LYMPHOCYTES % (AUTO) 26.5 % (20.0-44.0); MEAN CORPUSCULAR HGB CONC 33 g/dl (31.0-36.0); MEAN CORPUSCULAR VOLUME 84 fL (82-100); MONOCYTES # (AUTO) 1.5 /CMM (0.1-1.30); MONOCYTES % (AUTO) 18.5 % (2.0-12.0); NEUTROPHILS # (AUTO) 4.4 /CMM (1.8-8.9); NEUTROPHILS % (AUTO) 53.3 % (43.0-81.0); PLATELET COUNT (AUTO) 145 /CMM (150-450); RED BLOOD CELL COUNT(AUTO) 4.08 MIL/uL (4.0-5.2); WHITE BLOOD COUNT (AUTO) 8.4 K/uL (4.3-11.0)
[2019-02-18 07:41] LABS: EOSINOPHILS % (MANUAL) 2 % (0-4); LYMPHOCYTES % (MANUAL) 28 % (16-48); MONOCYTES % (MANUAL) 15 % (0-11.0); NEUTROPHILS % (MANUAL) 55 (42-76)
[2019-02-18 08:00] VITALS: BP 110/61
[2019-02-18] MEDS: OXYBUTYNIN CHLORIDE 5 MG TABLET PO SCH (08:36)
[2019-02-18] MEDS: FOLIC ACID 1 MG TABLET PO SCH (08:36)
[2019-02-18] MEDS: AMLODIPINE BESYLATE 5 MG TABLET PO SCH (08:36)
[2019-02-18] MEDS: ZINC SULFATE 220 MG CAPSULE PO SCH (08:36)
[2019-02-18] MEDS: GABAPENTIN 300 MG CAPSULE PO SCH ×3 (08:37→18:06)
[2019-02-18] MEDS: ASCORBIC ACID 500 MG TABLET PO SCH ×2 (08:37→18:06)
[2019-02-18] MEDS: THIAMINE HCL 100 MG TABLET PO SCH (08:37)
[2019-02-18] MEDS: CARVEDILOL 6.25 MG TABLET PO SCH ×2 (08:37→17:00)
[2019-02-18] MEDS: HYDROGEL DRESSING 90 GM TUBE TP SCH (08:37)
[2019-02-18] MEDS: ESCITALOPRAM OXALATE (10 MG) 10 MG TABLET PO SCH (08:37)
[2019-02-18] MEDS: PANTOPRAZOLE 40 MG TABLET.DR PO SCH (08:39)
[2019-02-18] MEDS ORDERED: POTASSIUM CHLORIDE 20 MEQ TAB.PRT.SR PO SCH (11:00)
[2019-02-18] MEDS: Magnesium 1GM/D5W 100ML PREMIX 100 ML IV SCH ×2 (11:46→12:47)
[2019-02-18 16:00] VITALS: BP 98/52
[2019-02-18 20:00] VITALS: BP 112/65
[2019-02-18] MEDS: MIRTAZAPINE 15 MG TABLET PO SCH (22:16)
[2019-02-19] MEDS: PIPERACILLIN /TAZOBACTAM 3.375 G in IV D5W 100 ML IV SCH ×2 (01:07→09:58)
[2019-02-19] MEDS: hydrOXYzine 10 MG TABLET PO SCH ×5 (01:07→16:35)
[2019-02-19 04:00] VITALS: BP 108/63
[2019-02-19 06:24] LABS: CALCIUM, SERUM 7.8 mg/dL (8.5-10.1); CARBON DIOXIDE 28 mmol/L (21-32); CHLORIDE 110 mmol/L (98-107); GLUCOSE 127 mg/dL (74-106); MAGNESIUM 1.5 mg/dL (1.8-2.4); PHOSPHORUS 2.5 mg/dL (2.5-4.9); POTASSIUM 3.4 mmol/L (3.5-5.1); SODIUM SERUM 143 mmol/L (136-145); UREA NITROGEN, BLOOD 15 mg/dL (7-18)
[2019-02-19 06:26] LABS: BASOPHILS % (AUTO) 0.2 % (0.0-2.0); EOSINOPHILS % (AUTO) 1.4 % (0.0-6.0); HEMATOCRIT 32 % (33-45); HEMOGLOBIN 10.5 g/dL (11.5-14.8); LYMPHOCYTES # (AUTO) 2.1 /CMM (0.8-4.8); LYMPHOCYTES % (AUTO) 21.4 % (20.0-44.0); MEAN CORPUSCULAR HGB CONC 33 g/dl (31.0-36.0); MEAN CORPUSCULAR VOLUME 84 fL (82-100); MONOCYTES # (AUTO) 1.7 /CMM (0.1-1.30); MONOCYTES % (AUTO) 17.7 % (2.0-12.0); NEUTROPHILS # (AUTO) 5.8 /CMM (1.8-8.9); NEUTROPHILS % (AUTO) 59.3 % (43.0-81.0); PLATELET COUNT (AUTO) 164 /CMM (150-450); RED BLOOD CELL COUNT(AUTO) 3.81 MIL/uL (4.0-5.2); WHITE BLOOD COUNT (AUTO) 9.7 K/uL (4.3-11.0)
[2019-02-19 07:26] LABS: BAND % (MANUAL) 3 % (0.0-5.0); LYMPHOCYTES % (MANUAL) 30 % (16-48); MONOCYTES % (MANUAL) 20 % (0-11.0); NEUTROPHILS % (MANUAL) 47 (42-76)
[2019-02-19 08:00] VITALS: BP 134/68
[2019-02-19 08:04] VITALS: BP 134/68
[2019-02-19 08:10] LABS: *SPE ALBUMIN 2.9 g/dL (2.9-4.4); *SPE ALPHA-1-GLOBULIN 0.4 g/dL (0.0-0.4); *SPE BETA GLOBULIN 0.8 g/dL (0.7-1.3); *SPE M-SPIKE Not Observed g/dL (Not Observed); *SPEGAMMA GLOBULIN 0.9 g/dL (0.4-1.8)
[2019-02-19] MEDS ORDERED: MAGNESIUM OXIDE 400 MG TABLET PO ONE (09:00)
[2019-02-19] MEDS ORDERED: POTASSIUM CHLORIDE 20 MEQ TAB.PRT.SR PO ONE (09:00)
[2019-02-19] MEDS: AMLODIPINE BESYLATE 5 MG TABLET PO SCH (09:00)
[2019-02-19] MEDS: GABAPENTIN 300 MG CAPSULE PO SCH ×3 (09:21→16:34)
[2019-02-19] MEDS: ESCITALOPRAM OXALATE (10 MG) 10 MG TABLET PO SCH (09:21)
[2019-02-19] MEDS: ZINC SULFATE 220 MG CAPSULE PO SCH (09:21)
[2019-02-19] MEDS: FOLIC ACID 1 MG TABLET PO SCH (09:22)
[2019-02-19] MEDS: THIAMINE HCL 100 MG TABLET PO SCH (09:22)
[2019-02-19] MEDS: OXYBUTYNIN CHLORIDE 5 MG TABLET PO SCH (09:22)
[2019-02-19] MEDS: CARVEDILOL 6.25 MG TABLET PO SCH ×2 (09:22→16:35)
[2019-02-19] MEDS: ASCORBIC ACID 500 MG TABLET PO SCH ×2 (09:22→16:34)
[2019-02-19] MEDS: PANTOPRAZOLE 40 MG TABLET.DR PO SCH (09:23)
[2019-02-19] MEDS: HYDROGEL DRESSING 90 GM TUBE TP SCH (09:24)
[2019-02-19] MEDS: Magnesium 1GM/D5W 100ML PREMIX 100 ML IV SCH ×2 (12:02→13:19)
[2019-02-19 16:00] VITALS: BP 91/53
[2019-02-19 16:35] VITALS: BP 91/53
[2019-02-20 10:07] LABS: VITAMIN B1 THIAMINE,WB 134.4 nmol/L (66.5-200.0)
== END 2019-02-19 18:19 | DRG 682 ==
LOC: ER 15:02 → TELE1 16:54 → TELE-TD 19:37 → MEDSG1 02-16 10:39
PROVIDERS: ADMIT Hospitalist; ATTEND Hospitalist
PROC: 05HC33Z Insertion of Infusion Device into Left Basilic Vein, Percutaneous Approach (ICD-10-PCS; principal; 2019-02-14)
PROC: B54NZZA Ultrasonography of Left Upper Extremity Veins, Guidance (ICD-10-PCS; 2019-02-14)
DX: N17.0 Acute kidney failure with tubular necrosis (principal); R65.11 Systemic inflammatory response syndrome (SIRS) of non-infectious origin with acute organ dysfunction; E43 Unspecified severe protein-calorie malnutrition; G92 Toxic encephalopathy; E87.0 Hyperosmolality and hypernatremia; Z68.1 Body mass index [BMI] 19.9 or less, adult; E87.2 Acidosis; E86.9 Volume depletion, unspecified; E87.6 Hypokalemia; E83.42 Hypomagnesemia; D72.829 Elevated white blood cell count, unspecified; I10 Essential (primary) hypertension; G89.29 Other chronic pain; F10.10 Alcohol abuse, uncomplicated; D69.6 Thrombocytopenia, unspecified; I48.91 Unspecified atrial fibrillation; E83.39 Other disorders of phosphorus metabolism; F32.9 Major depressive disorder, single episode, unspecified; L89.152 Pressure ulcer of sacral region, stage 2; R53.1 Weakness; F17.210 Nicotine dependence, cigarettes, uncomplicated; Z96.649 Presence of unspecified artificial hip joint
CPT/HCPCS: 36415; 36569; 70450-TC; 71045-TC; 72125-TC; 72170-TC; 80048-TC; 80053-TC; 80061-TC; 80076-TC; 80305; 81000-TC; 82140-TC; 82550-TC; 82570-TC; 83605-TC; 83735-TC; 83970; 84100-TC; 84155; 84155-TC; 84165; 84300-TC; 84425; 84443-TC; 84484-TC; 85025-TC; 85730-TC; 87040-TC; 87081-TC; 97110-TC; 97116-TC; 97530-TC; A6248; C1769; G0378; G0480; J2543; J3475; J3490; J7030; J7042; J7060; Q0177

== ENCOUNTER 2019-08-20 09:48 | Inpatient (IN) | payer MEDICARE, OTHER ==
[~2019-08-20] VITALS: Ht 160 cm; Wt 59.9 kg
[~2019-08-20 09:48] MED LIST changes: -HYDR-3024 PO; +HYDR-3642 PO; +NAPR220T66 PO; -OXYB10TA2 PO; +OXYB10TA30 PO; +ZINC1CAP2 PO; -ZINC220C8 PO
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
--- NOTE | 2019-08-20 10:05 | NUR ---
SEEN AND EXAMINED BY .
--- NOTE | 2019-08-20 10:15 | NUR ---
ER PHLEB AT BEDSIDE FOR BLOOD DRAW.
[2019-08-20 10:18] LABS: BASOPHILS # (AUTO) 0.1 /CMM (0.0-0.2); BASOPHILS % (AUTO) 0.9 % (0.0-2.0); EOSINOPHILS % (AUTO) 0.4 % (0.0-6.0); HEMATOCRIT 44 % (33-45); HEMOGLOBIN 14.4 g/dL (11.5-14.8); LYMPHOCYTES # (AUTO) 1.8 /CMM (0.8-4.8); LYMPHOCYTES % (AUTO) 15.1 % (20.0-44.0); MEAN CORPUSCULAR HGB CONC 33 g/dl (31.0-36.0); MEAN CORPUSCULAR VOLUME 85 fL (82-100); MONOCYTES # (AUTO) 0.7 /CMM (0.1-1.30); MONOCYTES % (AUTO) 5.9 % (2.0-12.0); NEUTROPHILS # (AUTO) 9.1 /CMM (1.8-8.9); NEUTROPHILS % (AUTO) 77.7 % (43.0-81.0); PLATELET COUNT (AUTO) 250 /CMM (150-450); RED BLOOD CELL COUNT(AUTO) 5.11 MIL/uL (4.0-5.2); WHITE BLOOD COUNT (AUTO) 11.7 K/uL (4.3-11.0)
--- NOTE | 2019-08-20 10:21 | NUR ---
URINE SPECIMEN COLLECTED AND SENT TO LAB.
[2019-08-20 10:24] LABS: APPEARANCE,URINE Cloudy (CLEAR); BILIRUBIN,URINE MODERATE (NEGATIVE); BLOOD, URINE Small Ery/uL (NEGATIVE); COLOR,URINE Dark (YELLOW); KETONES,URINE >=160 (NEGATIVE); LEUKOCYTE ESTERASE ,URINE Small (NEGATIVE); NITRITE, URINE Positive (NEGATIVE); PROTEIN,URINE 100 mg/dl (NEGATIVE); UGLUCOSE Negative (NEGATIVE)
[2019-08-20 10:26] LABS: CALCIUM, SERUM 9.4 mg/dL (8.5-10.1); CARBON DIOXIDE 21 mmol/L (21-32); CHLORIDE 99 mmol/L (98-107); CREATININE 0.9 mg/dL (0.6-1.3); GLUCOSE 128 mg/dL (74-106); POTASSIUM 3.5 mmol/L (3.5-5.1); SODIUM SERUM 139 mmol/L (136-145); UREA NITROGEN, BLOOD 14 mg/dL (7-18)
[2019-08-20 10:27] LABS: WBC,URINE TOO NUMEROUS TO COUN /HPF (0-3)
[2019-08-20 10:28] LABS: BACTERIA,URINE Moderate /HPF (None Seen); SQUAMOUS EPITHELIAL CELL,UR Few /HPF (None Seen)
--- NOTE | 2019-08-20 10:30 | NUR ---
art entry level chemist at bedside for eval.
[2019-08-20 10:31] LABS: ACETAMINOPHEN 9 ug/ml (10-30); ALANINE AMINOTRANSFERASE 8 U/L (12-78); ALBUMIN 4.1 g/dL (3.4-5.0); ALCOHOL, BLOOD < 3 mg/dL (0-0); ALKALINE PHOSPHATASE 64 U/L (46-116); ASPARTATE AMINOTRANSFERASE 13 U/L (15-37); BILIRUBIN,DIRECT 0.2 mg/dL (0.0-0.2); BILIRUBIN,TOTAL 0.6 mg/dL (0.2-1.0); SALICYLATE 7.2 mg/dL (2.8-20.0); TOTAL PROTEIN, SERUM 7.8 g/dL (6.4-8.2)
--- NOTE | 2019-08-20 11:22 | NUR ---
NURSING SUP GAVE [facility] 218-B.
--- NOTE | 2019-08-20 11:40 | NUR ---
REPORT GIVEN TO JUDITH BOND OF [facility] FOR FESTUS.
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
[2019-08-20] MEDS ORDERED: MAG HYDROX/AL HYDROX/SIMETH 30 ML UDC PO PRN (13:00)
[2019-08-20] MEDS ORDERED: BLOOD SUGAR DIAGNOSTIC 1 EACH STRIP IN ONE (13:00)
[2019-08-20] MEDS ORDERED: MAGNESIUM HYDROXIDE 30 ML UDC PO PRN (13:00)
--- NOTE | 2019-08-20 13:01 | NUR ---
GPS/RN-NOTES DR. MUSTAFA MADE AWARE OF THE ADMISSION WITH ORDERS. NOTED AND CARRIED OUT.
[2019-08-20] MEDS: ACETAMINOPHEN 325 MG TABLET PO PRN (14:28)
[2019-08-20 16:00] VITALS: BP 136/77
[2019-08-20] MEDS: CEPHALEXIN MONOHYDRATE 250 MG CAPSULE PO SCH (18:10)
[2019-08-20] MEDS: NAPROXEN 250 MG TABLET PO PRN (18:10)
--- NOTE | 2019-08-20 18:10 | NUR ---
RN NOTE- PT W PAIN TO LEGS AND RT ARM. NAPROSYN GIVEN AT THIS TIME. PT ALSO STARTED ON KEFLEX 500MG FOR UTI. WILL MONITOR
[2019-08-20 20:00] VITALS: BP 123/65
--- NOTE | 2019-08-20 20:00 | NUR ---
GPS JUDITH tabor Pt is in shine-chair. Pt tolerated activity well. Addendum: 08/20/19 at 2020 by LEONARDO ALBARADO RN Wrong Pt.
[2019-08-20 20:18] VITALS: BP 123/65
[2019-08-20 21:00] VITALS: BP 135/75
[2019-08-20] MEDS: BENZTROPINE MESYLATE (1 MG) 1 MG TABLET PO SCH (21:21)
[2019-08-20] MEDS: risperiDONE 1 MG TABLET PO SCH (21:21)
[2019-08-21] MEDS: NAPROXEN 250 MG TABLET PO PRN ×2 (06:30→17:47)
--- NOTE | 2019-08-21 06:30 | NUR ---
GPS RN notes Pt is complaining of pain on her right arm and requesting meds. Administered naproxen 250 mg/1 tab/po as ordered for pain. Safety precautions is maintained. Will continue to monitor.
[2019-08-21 08:00] VITALS: BP 123/54
[2019-08-21 08:28] LABS: CHOLESTEROL 158 mg/dL (<200); HDL CHOLESTEROL 54 mg/dL (40-60); LDL 83 mg/dL (0-99); TRIGLYCERIDES 93 mg/dL (30-150)
[2019-08-21 08:34] LABS: ALBUMIN 3.7 g/dL (3.4-5.0); BILIRUBIN,TOTAL 0.4 mg/dL (0.2-1.0); CALCIUM, SERUM 8.8 mg/dL (8.5-10.1); CREATININE 0.9 mg/dL (0.6-1.3); POTASSIUM 3.3 mmol/L (3.5-5.1); TOTAL PROTEIN, SERUM 6.8 g/dL (6.4-8.2)
[2019-08-21] MEDS: FOLIC ACID 1 MG TABLET PO SCH (08:48)
[2019-08-21] MEDS: OXYBUTYNIN CHLORIDE ER 5 MG TAB PO SCH (08:48)
[2019-08-21] MEDS: MULTIVITAMINS,THERAGRAN 1 UDTAB TABLET PO SCH (08:48)
[2019-08-21] MEDS: CEPHALEXIN MONOHYDRATE 250 MG CAPSULE PO SCH ×2 (08:49→17:46)
[2019-08-21] MEDS: METOPROLOL TARTRATE 25 MG TABLET PO SCH ×2 (08:49→17:47)
[2019-08-21] MEDS: THIAMINE HCL 100 MG TABLET PO SCH (08:49)
[2019-08-21] MEDS: ASCORBIC ACID 500 MG TABLET PO SCH ×2 (08:49→17:47)
[2019-08-21] MEDS: CARVEDILOL 6.25 MG TABLET PO SCH ×2 (08:50→17:48)
[2019-08-21] MEDS: AMLODIPINE BESYLATE 5 MG TABLET PO SCH (08:50)
[2019-08-21] MEDS: GABAPENTIN 300 MG CAPSULE PO SCH ×3 (08:52→17:47)
[2019-08-21] MEDS ORDERED: POTASSIUM CHLORIDE 20 MEQ TAB.PRT.SR PO SCH (09:30)
--- NOTE | 2019-08-21 15:25 | NUR ---
FAMILY CONTACT: SW contacted pts son Amish [phone] and left a voicemail for callback.
--- NOTE | 2019-08-21 15:52 | NUR ---
INITIAL DISCHARGE PLAN: Patient wishes to return home [address] [facility] [address] where she states she lives alone and wishes to be discharged with a caregiver. MATY attempted to contact pt son Amish [phone] to discuss discharge options and left a voicemail for callback. MATY will collaborate with MD and pts son for a safe and proper discharge plan.
[2019-08-21 16:00] VITALS: BP 122/74
--- NOTE | 2019-08-21 16:11 | NUR ---
GROUP NOTE: SW encouraged pt to attend group on this present day discussing "unstable mood." Pt was present in group but remained quiet. Pt was prompted to participate but stated she just wanted to observe today. Pt was calm and cooperative. SW will continue to prompt pt to engage in self care and encourage self-regulation of mood.
[2019-08-21] MEDS: SERTRALINE HCL 25 MG TABLET PO SCH (17:47)
[2019-08-21 19:47] VITALS: BP 113/68
[2019-08-21 20:00] VITALS: BP 113/68
[2019-08-21 21:31] VITALS: BP 115/77
[2019-08-21] MEDS: risperiDONE 1 MG TABLET PO SCH (21:32)
[2019-08-21] MEDS: BENZTROPINE MESYLATE (1 MG) 1 MG TABLET PO SCH (21:32)
[2019-08-21] MEDS: ACETAMINOPHEN 325 MG TABLET PO PRN (21:57)
--- NOTE | 2019-08-21 21:57 | NUR ---
GPS RN notes Pt is complaining of pain on right arm. administered tylenol 325mg/2 tabs/po as ordered for pain. VS is stable. Will continue to monitor.
[2019-08-22 07:33] LABS: CALCIUM, SERUM 8.8 mg/dL (8.5-10.1); CREATININE 0.9 mg/dL (0.6-1.3); POTASSIUM 3.8 mmol/L (3.5-5.1)
[2019-08-22 08:00] VITALS: BP 142/81
--- NOTE | 2019-08-22 08:35 | NUR ---
FAMILY CONTACT: MATY contacted pts son Amish [phone] and discussed pts discharge plan. Son states that pt has been living at his home for the pats 2 weeks and states that she is too much to handle and he wishes for her to be placed at a SNF. MATY informed him that she will discuss placement options with MD and he agreed.
[2019-08-22] MEDS: OXYBUTYNIN CHLORIDE ER 5 MG TAB PO SCH (09:02)
[2019-08-22] MEDS: GABAPENTIN 300 MG CAPSULE PO SCH ×3 (09:02→16:54)
[2019-08-22] MEDS: THIAMINE HCL 100 MG TABLET PO SCH (09:02)
[2019-08-22] MEDS: CEPHALEXIN MONOHYDRATE 250 MG CAPSULE PO SCH ×2 (09:02→16:54)
[2019-08-22] MEDS: AMLODIPINE BESYLATE 5 MG TABLET PO SCH (09:03)
[2019-08-22] MEDS: METOPROLOL TARTRATE 25 MG TABLET PO SCH ×2 (09:03→16:54)
[2019-08-22] MEDS: ASCORBIC ACID 500 MG TABLET PO SCH ×2 (09:03→16:54)
[2019-08-22] MEDS: FOLIC ACID 1 MG TABLET PO SCH (09:03)
[2019-08-22] MEDS: MULTIVITAMINS,THERAGRAN 1 UDTAB TABLET PO SCH (09:03)
[2019-08-22] MEDS: CARVEDILOL 6.25 MG TABLET PO SCH ×2 (09:04→16:55)
--- NOTE | 2019-08-22 15:44 | NUR ---
GROUP NOTE: SW encouraged pt to attend group therapy on this present day discussing "suicidality." Pt was asleep and not easily aroused. SW attempted to call pts name but she did not respond to verbal cues.
[2019-08-22 16:00] VITALS: BP 112/64
[2019-08-22] MEDS: SERTRALINE HCL 25 MG TABLET PO SCH (16:54)
--- NOTE | 2019-08-22 19:15 | NUR ---
GPS RN NOTES: RECEIVED PATIENT Patient in bed, awake. A/O x3 appears calm. Tolerating room air, denies SOB.Left anterior thigh abrasion, denies pain. RUE contracted, decrease ROM, limited movement. Fall precaution maintained, continue safety check every hour.
[2019-08-22 20:00] VITALS: BP 117/75
[2019-08-22] MEDS: risperiDONE 1 MG TABLET PO SCH (21:47)
[2019-08-22] MEDS: BENZTROPINE MESYLATE (1 MG) 1 MG TABLET PO SCH (21:47)
--- NOTE | 2019-08-23 06:16 | NUR ---
GPS RN NOTES: END OF SHIFT REPORT Patient in bed, awake. Stable on room air, denies SOB. Patient is A/O x3, compliant with medication, no acute events overnight, 8hour sleep. Left anterior thigh abrasion, RUE contracted, decrease ROM, limited movement, denies pain. Hourly rounds, fall precaution maintained. Will endorse to Oncoming RN.
[2019-08-23 08:00] VITALS: BP 118/62
[2019-08-23] MEDS: NAPROXEN 250 MG TABLET PO PRN (09:20)
[2019-08-23] MEDS: FOLIC ACID 1 MG TABLET PO SCH (09:22)
[2019-08-23] MEDS: ASCORBIC ACID 500 MG TABLET PO SCH ×2 (09:22→16:32)
[2019-08-23] MEDS: THIAMINE HCL 100 MG TABLET PO SCH (09:22)
[2019-08-23] MEDS: MULTIVITAMINS,THERAGRAN 1 UDTAB TABLET PO SCH (09:23)
[2019-08-23] MEDS: GABAPENTIN 300 MG CAPSULE PO SCH ×3 (09:23→16:32)
[2019-08-23] MEDS: AMLODIPINE BESYLATE 5 MG TABLET PO SCH (09:23)
[2019-08-23] MEDS: CARVEDILOL 6.25 MG TABLET PO SCH ×2 (09:24→16:33)
[2019-08-23] MEDS: OXYBUTYNIN CHLORIDE ER 5 MG TAB PO SCH (09:24)
[2019-08-23] MEDS: CEPHALEXIN MONOHYDRATE 250 MG CAPSULE PO SCH ×2 (09:25→16:33)
[2019-08-23] MEDS: METOPROLOL TARTRATE 25 MG TABLET PO SCH ×2 (09:25→16:33)
--- NOTE | 2019-08-23 15:43 | NUR ---
GROUP NOTE: SW encouraged pt to attend group on this present day discussing "discharge planning." S: "You already know I want to go back home alone but I guess a halfway for a few days is okay." O: pt maintained appropriate eye contact. Pt was calm and cooperative.Pts mood appears euthymic with congruent affect. A: Pt has not gained awareness into her condition as she accepts placement and knows she cannot be alone at this time. P: SW will continue to encourage pt to engage in her recovery and accept her illness.
[2019-08-23 16:00] VITALS: BP 118/67
[2019-08-23] MEDS: SERTRALINE HCL 25 MG TABLET PO SCH (16:33)
--- NOTE | 2019-08-23 19:15 | NUR ---
RN OPENING NOTES: RECEIVED PATIENT RESTING IN BED, AWAKE, A/O X3. NO COMPLAIN OF PAIN. NO SOB. BED IN LOWEST AND LOCKED POSITION. PATIENT IS CALM.
[2019-08-23 20:00] VITALS: BP 127/72
[2019-08-23 20:10] VITALS: BP 127/72
[2019-08-23] MEDS: BENZTROPINE MESYLATE (1 MG) 1 MG TABLET PO SCH (22:13)
[2019-08-23] MEDS: risperiDONE 0.25 MG TABLET PO SCH (22:13)
--- NOTE | 2019-08-24 06:48 | NUR ---
RN CLOSING NOTES: PATIENT IN BED, ASLEEP. NO SOB NOTED. NO COMPLAIN OF PAIN DURING THE SHIFT. PATIENT IS CALM. BED IN LOWEST AND LOCKED POSITION.AFEBRILE.
[2019-08-24 08:00] VITALS: BP 122/68
[2019-08-24] MEDS: THIAMINE HCL 100 MG TABLET PO SCH (09:01)
[2019-08-24] MEDS: METOPROLOL TARTRATE 25 MG TABLET PO SCH ×2 (09:01→16:23)
[2019-08-24] MEDS: ASCORBIC ACID 500 MG TABLET PO SCH ×2 (09:01→16:21)
[2019-08-24] MEDS: GABAPENTIN 300 MG CAPSULE PO SCH ×3 (09:01→16:21)
[2019-08-24] MEDS: OXYBUTYNIN CHLORIDE ER 5 MG TAB PO SCH (09:01)
[2019-08-24] MEDS: FOLIC ACID 1 MG TABLET PO SCH (09:01)
[2019-08-24] MEDS: MULTIVITAMINS,THERAGRAN 1 UDTAB TABLET PO SCH (09:01)
[2019-08-24] MEDS: CEPHALEXIN MONOHYDRATE 250 MG CAPSULE PO SCH ×2 (09:01→16:21)
[2019-08-24] MEDS: CARVEDILOL 6.25 MG TABLET PO SCH ×2 (09:02→16:22)
[2019-08-24] MEDS: AMLODIPINE BESYLATE 5 MG TABLET PO SCH (09:02)
[2019-08-24 16:00] VITALS: BP 112/60
[2019-08-24] MEDS: SERTRALINE HCL 25 MG TABLET PO SCH (16:21)
[2019-08-24 19:53] VITALS: BP 109/64
[2019-08-24 20:25] VITALS: BP 109/64
[2019-08-24] MEDS: risperiDONE 0.25 MG TABLET PO SCH (21:42)
[2019-08-24] MEDS: BENZTROPINE MESYLATE (1 MG) 1 MG TABLET PO SCH (21:42)
[2019-08-24] MEDS: ACETAMINOPHEN 325 MG TABLET PO PRN (22:56)
--- NOTE | 2019-08-24 22:58 | NUR ---
PRN TYLENOL GIVEN PATIENT VERBALIZED RIGHT ARM PAIN 3/10, WANTED TO GET TYLENOL FOR PAIN. PRN TYLENOL 650 MG PO GIVEN. WILL CONTINUE TO MONITOR FOR EFFECTIVENESS.
--- NOTE | 2019-08-25 03:24 | NUR ---
GPS RN NOTE PATIENT IS SLEEPING COMFORTABLY AT THIS TIME. ALL NEEDS ANTICIPATED & MET. WILL CONTINUE TO MONITOR CLOSELY FOR SAFETY & BEHAVIOR.
[2019-08-25 08:00] VITALS: BP 104/59
[2019-08-25] MEDS: CEPHALEXIN MONOHYDRATE 250 MG CAPSULE PO SCH ×2 (08:11→16:41)
[2019-08-25] MEDS: GABAPENTIN 300 MG CAPSULE PO SCH ×3 (08:11→16:41)
[2019-08-25] MEDS: MULTIVITAMINS,THERAGRAN 1 UDTAB TABLET PO SCH (08:11)
[2019-08-25] MEDS: FOLIC ACID 1 MG TABLET PO SCH (08:11)
[2019-08-25] MEDS: OXYBUTYNIN CHLORIDE ER 5 MG TAB PO SCH (08:12)
[2019-08-25] MEDS: THIAMINE HCL 100 MG TABLET PO SCH (08:12)
[2019-08-25] MEDS: ASCORBIC ACID 500 MG TABLET PO SCH ×2 (08:12→16:41)
[2019-08-25] MEDS: CARVEDILOL 6.25 MG TABLET PO SCH ×2 (08:13→16:42)
[2019-08-25] MEDS: METOPROLOL TARTRATE 25 MG TABLET PO SCH ×2 (08:13→16:41)
[2019-08-25] MEDS: AMLODIPINE BESYLATE 5 MG TABLET PO SCH (08:13)
[2019-08-25] MEDS: SERTRALINE HCL 25 MG TABLET PO SCH ×2 (12:15→16:41)
[2019-08-25 16:08] VITALS: BP 129/72
--- NOTE | 2019-08-25 19:20 | NUR ---
GPS RN OPENING NOTE RECEIVED PATIENT RESTING IN HER BED COMFORTABLY, NO S/S OF ANY DISTRESS NOTED. A & O X 2-3, CALM, COOPERATIVE, PLEASANT, FLAT AFFECT, DEPRESSED MOOD, ISOLATIVE, DENIES SI/HI/AVH AT THIS TIME. FALL PRECAUTIONS IMPLEMENTED. ENCOURAGED PT. TO CALL FOR HELP WHEN NEEDS TO GET OUT OF BED TO PREVENT FALL, BED ALARM ON. BED IN LOW LOCKED POSITION. NO C/O PAIN OR ANY DISCOMFORT VERBALIZED AT THIS TIME. WILL CONTINUE TO MONITOR Q15 FOR SAFETY & BEHAVIOR.
[2019-08-25 20:15] VITALS: BP 130/100
[2019-08-25] MEDS: BENZTROPINE MESYLATE (1 MG) 1 MG TABLET PO SCH (21:55)
[2019-08-25] MEDS: risperiDONE 1 MG TABLET PO SCH (21:55)
[2019-08-25] MEDS: ACETAMINOPHEN 325 MG TABLET PO PRN (22:03)
--- NOTE | 2019-08-25 22:05 | NUR ---
PRN TYLENOL GIVEN PATIENT VERBALIZED C/O RIGHT ARM PAIN, MILD, REQUESTED TO GET TYLENOL FOR PAIN. PRN TYLENOL 650 MG PO GIVEN. WILL CONTINUE TO MONITOR THE PATIENT FOR EFFECTIVENESS.
[2019-08-26 08:00] VITALS: BP 117/68
[2019-08-26] MEDS: CEPHALEXIN MONOHYDRATE 250 MG CAPSULE PO SCH ×2 (08:16→16:36)
[2019-08-26] MEDS: OXYBUTYNIN CHLORIDE ER 5 MG TAB PO SCH (08:16)
[2019-08-26] MEDS: AMLODIPINE BESYLATE 5 MG TABLET PO SCH (08:17)
[2019-08-26] MEDS: MULTIVITAMINS,THERAGRAN 1 UDTAB TABLET PO SCH (08:17)
[2019-08-26] MEDS: FOLIC ACID 1 MG TABLET PO SCH (08:17)
[2019-08-26] MEDS: GABAPENTIN 300 MG CAPSULE PO SCH ×3 (08:17→16:35)
[2019-08-26] MEDS: CARVEDILOL 6.25 MG TABLET PO SCH ×2 (08:17→16:36)
[2019-08-26] MEDS: METOPROLOL TARTRATE 25 MG TABLET PO SCH ×2 (08:18→16:35)
[2019-08-26] MEDS: THIAMINE HCL 100 MG TABLET PO SCH (08:18)
[2019-08-26] MEDS: ASCORBIC ACID 500 MG TABLET PO SCH ×2 (08:18→16:36)
--- NOTE | 2019-08-26 09:24 | NUR ---
GPS RN NOTE: RECEIVED PATIENT IN BED RESTING AWAKE NO S/S DISTRESS NOTED COMPLIANT WITH MEDICATIONS.DENIES SI/HI AT THIS TIME ABLE TO AMBULATE IN THE BATHROOM. ALL NEEDS ATTENDED AND ANTICIPATED. WILL CONT. MONITORING Q15 MINS. FOR SAFETY AND BEHAVIOR.
[2019-08-26] MEDS: SERTRALINE HCL 25 MG TABLET PO SCH ×2 (12:12→16:36)
[2019-08-26 16:00] VITALS: BP 121/72
--- NOTE | 2019-08-26 17:52 | NUR ---
RN-CO: PATIENT NOTED VERY DELUSIONAL IN THE [facility], APPROX. 1700. SHE BELIEVES THAT SHE SAW HER BROTHER INSIDE THE SHOWER ROOM AND TREATMENT ROOM. WE OPEN TO SHOWED HER THAT THE SHOWER ROOM IS EMPTY.THEN SHE SAID TO OPEN THE TREATMENT ROOM. STAFF ESCORTED HER TO HER ROOM TO EAT DINNER AFTER EXPLAINING TO HER.
[2019-08-26 20:21] VITALS: BP 116/61
[2019-08-26] MEDS: risperiDONE 1 MG TABLET PO SCH (21:45)
[2019-08-26] MEDS: BENZTROPINE MESYLATE (1 MG) 1 MG TABLET PO SCH (21:45)
[2019-08-27] MEDS: ACETAMINOPHEN 325 MG TABLET PO PRN ×2 (06:39→17:26)
--- NOTE | 2019-08-27 06:40 | NUR ---
PRN TYLENOL GIVEN PATIENT C/O RIGHT ARM PAIN, MILD. REQUESTED TO GET PAIN MEDICINE. PRN TYLENOL 650 MG PO GIVEN ORDERED. WILL ENDORSE TO AM JUDITH.
[2019-08-27 08:00] VITALS: BP 107/75
[2019-08-27] MEDS: GABAPENTIN 300 MG CAPSULE PO SCH ×3 (08:28→17:27)
[2019-08-27] MEDS: METOPROLOL TARTRATE 25 MG TABLET PO SCH ×2 (08:30→17:26)
[2019-08-27] MEDS: AMLODIPINE BESYLATE 5 MG TABLET PO SCH (08:31)
[2019-08-27] MEDS: OXYBUTYNIN CHLORIDE ER 5 MG TAB PO SCH (08:31)
[2019-08-27] MEDS: FOLIC ACID 1 MG TABLET PO SCH (08:31)
[2019-08-27] MEDS: THIAMINE HCL 100 MG TABLET PO SCH (08:31)
[2019-08-27] MEDS: CARVEDILOL 6.25 MG TABLET PO SCH ×2 (08:32→17:31)
[2019-08-27] MEDS: MULTIVITAMINS,THERAGRAN 1 UDTAB TABLET PO SCH (08:33)
[2019-08-27] MEDS: ASCORBIC ACID 500 MG TABLET PO SCH ×2 (08:33→17:27)
[2019-08-27] MEDS: CEPHALEXIN MONOHYDRATE 250 MG CAPSULE PO SCH ×2 (08:33→17:31)
--- NOTE | 2019-08-27 10:37 | NUR ---
SNF REFERRAL: MATY faxed SNF referral to [facility] Address: [address] [facility], [place] [address] FAx: [phone] for review.
[2019-08-27] MEDS: SERTRALINE HCL 25 MG TABLET PO SCH (12:03)
--- NOTE | 2019-08-27 12:46 | NUR ---
SNF REFERRAL: SW received a call from marybel Almodovar at [facility] Address: [address] [place] [address] stating pt has been accepted to the facilities.
--- NOTE | 2019-08-27 15:39 | NUR ---
GROUP NOTE: SW encouraged pt to attend group on this present day discussing "discharge planning." Pt was asleep and not easily aroused. Addendum: 08/27/19 at 1541 by JEFF RUTLEDGE ERROR
--- NOTE | 2019-08-27 15:40 | NUR ---
GROUP NOTE: SW encouraged pt to attend group on this present day discussing "mood-regulation." Pt was asleep and not easily aroused.
[2019-08-27 16:00] VITALS: BP 140/74
--- NOTE | 2019-08-27 20:00 | NUR ---
GPS RN OPENING NOTES: RECEIVED PATIENT IN BED ASLEEP, EASILY AROUSES. NO COMPLAINS OF PAIN OR DISCOMFORT THIS TIME OF ASSESSMENT. PATIENT APPEARS DISHEVELED. ANXIOUS, HOWEVER COOPERATIVE WITH TREATMENT AND CARE RENDERED BY STAFF. REALITY ORIENTATION DONE. WILL ADMINISTER ORDERED MEDICATIONS. OFFERED ASSISTANCE WITH ADL'S. Q15 MIN CHECKS CONTINUED.
[2019-08-27 21:10] VITALS: BP 132/95
[2019-08-27] MEDS: BENZTROPINE MESYLATE (1 MG) 1 MG TABLET PO SCH (22:00)
[2019-08-27] MEDS: risperiDONE 1 MG TABLET PO SCH (22:00)
--- NOTE | 2019-08-27 22:14 | NUR ---
NURSES NOTES: PATIENT SOUND ASLEEP IN HER ROOM, SCHEDULED MEDICATIONS NON ADMINISTERED.
[2019-08-28 08:00] VITALS: BP 122/78
[2019-08-28] MEDS: CARVEDILOL 6.25 MG TABLET PO SCH ×2 (08:22→16:14)
[2019-08-28] MEDS: THIAMINE HCL 100 MG TABLET PO SCH (08:22)
[2019-08-28] MEDS: AMLODIPINE BESYLATE 5 MG TABLET PO SCH (08:22)
[2019-08-28] MEDS: OXYBUTYNIN CHLORIDE ER 5 MG TAB PO SCH (08:22)
[2019-08-28] MEDS: ASCORBIC ACID 500 MG TABLET PO SCH ×2 (08:22→16:15)
[2019-08-28] MEDS: risperiDONE 0.25 MG TABLET PO SCH ×2 (08:22→12:04)
[2019-08-28] MEDS: FOLIC ACID 1 MG TABLET PO SCH (08:23)
[2019-08-28] MEDS: MULTIVITAMINS,THERAGRAN 1 UDTAB TABLET PO SCH (08:23)
[2019-08-28] MEDS: GABAPENTIN 300 MG CAPSULE PO SCH ×3 (08:23→16:14)
[2019-08-28] MEDS: METOPROLOL TARTRATE 25 MG TABLET PO SCH ×2 (08:23→16:15)
[2019-08-28] MEDS: SERTRALINE HCL 25 MG TABLET PO SCH (12:04)
[2019-08-28 16:00] VITALS: BP 127/68
[2019-08-28] MEDS: BENZTROPINE MESYLATE (1 MG) 1 MG TABLET PO SCH (21:06)
[2019-08-28] MEDS: risperiDONE 1 MG TABLET PO SCH (21:06)
[2019-08-29 08:00] VITALS: BP 103/72
[2019-08-29] MEDS: ASCORBIC ACID 500 MG TABLET PO SCH ×2 (08:23→17:04)
[2019-08-29] MEDS: THIAMINE HCL 100 MG TABLET PO SCH (08:23)
[2019-08-29] MEDS: GABAPENTIN 300 MG CAPSULE PO SCH ×3 (08:24→17:04)
[2019-08-29] MEDS: FOLIC ACID 1 MG TABLET PO SCH (08:24)
[2019-08-29] MEDS: OXYBUTYNIN CHLORIDE ER 5 MG TAB PO SCH (08:24)
[2019-08-29] MEDS: risperiDONE 0.25 MG TABLET PO SCH ×2 (08:24→12:13)
[2019-08-29] MEDS: MULTIVITAMINS,THERAGRAN 1 UDTAB TABLET PO SCH (08:24)
[2019-08-29] MEDS: CARVEDILOL 6.25 MG TABLET PO SCH ×2 (08:24→17:04)
[2019-08-29] MEDS: METOPROLOL TARTRATE 25 MG TABLET PO SCH ×2 (08:25→17:04)
[2019-08-29] MEDS: AMLODIPINE BESYLATE 5 MG TABLET PO SCH (08:26)
--- NOTE | 2019-08-29 11:11 | NUR ---
WOUND CARE CONSULT: SEEN PATIENT AT BEDSIDE , PATIENT PRESENTS WITH DRY HEALING CLOSED BLISTERS ON LT ANTERIOR THIGH,PRESENT ON ADMISSION , LAI SCALE 18 ,RECOMMENDATION MADE FOR SKIN PROTECTION AND CARE, DISCUSSED WITH NURSING STAFF, IN AGREEMENT WITH PLAN OF CARE , WILL SEE PRN Addendum: 08/29/19 at 1115 by CHANTELLE MILLER RN Amended: Links added.
[2019-08-29] MEDS: SERTRALINE HCL 25 MG TABLET PO SCH (12:13)
--- NOTE | 2019-08-29 14:35 | NUR ---
Group Note: SW invited the patient to attend group therapy on 08/29/2019 1 pm to discuss "what changes they would like to see in their lives as a result of their stay in [facility]". However, the pt. was asleep and not easily rousable. The pt. will be invited to attend the next group therapy.
[2019-08-29 16:00] VITALS: BP 129/71
[2019-08-29 20:57] VITALS: BP 125/73
[2019-08-29] MEDS: BENZTROPINE MESYLATE (1 MG) 1 MG TABLET PO SCH (21:04)
[2019-08-29] MEDS: risperiDONE 1 MG TABLET PO SCH (21:04)
[2019-08-30 08:00] VITALS: BP 125/71
[2019-08-30] MEDS: OXYBUTYNIN CHLORIDE ER 5 MG TAB PO SCH (08:09)
[2019-08-30] MEDS: GABAPENTIN 300 MG CAPSULE PO SCH (08:09)
[2019-08-30] MEDS: MULTIVITAMINS,THERAGRAN 1 UDTAB TABLET PO SCH (08:09)
[2019-08-30] MEDS: risperiDONE 0.25 MG TABLET PO SCH (08:09)
[2019-08-30] MEDS: ASCORBIC ACID 500 MG TABLET PO SCH (08:10)
[2019-08-30] MEDS: THIAMINE HCL 100 MG TABLET PO SCH (08:10)
[2019-08-30] MEDS: FOLIC ACID 1 MG TABLET PO SCH (08:10)
[2019-08-30] MEDS: METOPROLOL TARTRATE 25 MG TABLET PO SCH (08:11)
[2019-08-30] MEDS: AMLODIPINE BESYLATE 5 MG TABLET PO SCH (08:13)
[2019-08-30 08:17] VITALS: BP 125/71
[2019-08-30] MEDS: CARVEDILOL 6.25 MG TABLET PO SCH (08:17)
--- NOTE | 2019-08-30 08:53 | NUR ---
FAMILY CONTACT: MATY contacted pts son Amish [phone] and left a voicemail informing him pt irene be discharged on this present day to [facility].
--- NOTE | 2019-08-30 09:14 | NUR ---
Dr. Danielle gave an order to D/C hold and D/C to [facility], to continue same meds and to follow up with psych and medical doctors. Addendum: 08/30/19 at 1052 by TAZ SHARMA RN Pt. without distress, denies suicidal and homicidal. Pt. signed the discharge papers, belongings ready and pictures taken for the skin issues. Wilfrid THOMAS made aware of the discharge and reconciled the meds. Report given to Cristofer over the facility.
--- NOTE | 2019-08-30 09:50 | NUR ---
DISCHARGE NOTE: Pt will be discharged at 11:00am via [facility] to [facility] ([facility] [address] [facility] [address] . Pts son Amish [phone] has been notified via voicemail. Pts mood is euthymic with congruent affect. Pt denied visual/auditory hallucinations and denied suicidal/homicidal ideation. Pt will address her substance use with Psychiatrist: Dr. Shilpi Danielle [address], [place] [address] [phone] and be under the care of Prosthetic Aide: Dr. Milton Alva Address: [address], [place] [address] . The multidisciplinary exit care form was done, printed, signed, and given to the patient. Addendum: 08/31/19 at 0829 by JEFF RUTLEDGE For smoking cessation, patient was referred to the [employer] and [employer] [id number]. Pt will also participate in a telephone meeting with [employer] [phone] on Saturday August 31, 2019 at 8:00am.
--- NOTE | 2019-08-30 11:30 | NUR ---
Pt. left the unit via ambulance and transported via a gurney with belongings. Pt. without distress and on stable condition. V/S taken: BP 122/70, WV 60, RR 18, temp 97.5 and oxygen sat 100%.
== END 2019-08-30 11:30 | DRG 885 ==
LOC: ER 09:56 → GPS 11:37
PROVIDERS: ADMIT Psychiatry & Neurology Psychosomatic Medicine; ATTEND Nurse Practitioner Acute Care
DX: F25.0 Schizoaffective disorder, bipolar type (principal); N39.0 Urinary tract infection, site not specified; I10 Essential (primary) hypertension; F41.9 Anxiety disorder, unspecified; I48.91 Unspecified atrial fibrillation; F03.90 Unspecified dementia, unspecified severity, without behavioral disturbance, psychotic disturbance, mood disturbance, and anxiety; M06.9 Rheumatoid arthritis, unspecified; Z91.81 History of falling; Z96.649 Presence of unspecified artificial hip joint; Z91.14 Patient's other noncompliance with medication regimen; Z88.8 Allergy status to other drugs, medicaments and biological substances; Z79.899 Other long term (current) drug therapy; M62.421 Contracture of muscle, right upper arm; F29 Unspecified psychosis not due to a substance or known physiological condition; Z73.6 Limitation of activities due to disability; B96.20 Unspecified Escherichia coli [E. coli] as the cause of diseases classified elsewhere; F10.10 Alcohol abuse, uncomplicated; Y90.9 Presence of alcohol in blood, level not specified; Z91.5 Personal history of self-harm; F17.200 Nicotine dependence, unspecified, uncomplicated
CPT/HCPCS: 36415; 80048-TC; 80053-TC; 80061-TC; 80076-TC; 80305; 81000-TC; 82962-TC; 85025-TC; 87081-TC; 87086-TC; 87186-TC; 97116-TC; 97530-TC; G0480

== ENCOUNTER 2020-06-11 15:17 | Emergency (ER) | payer MEDICARE, OTHER ==
[~2020-06-11] VITALS: Ht 170.2 cm; Wt 56.7 kg
[~2020-06-11 15:17] MED LIST changes: +AMLO-212 PO; -AMLO5TAB9 PO; +ASCO500T20 PO; -ASCO500T9 PO; -CLON0.1T PO; -ZINC1CAP2 PO
[2020-06-11] MEDS ORDERED: BENZ0.5T43 PO (15:31)
[2020-06-11] MEDS ORDERED: RISP0.2515 PO (15:31)
--- NOTE | 2020-06-11 15:40 | NUR ---
[id number] FRM HALF-WAY C/O GENERALIZED WEAKNESS SINCE THIS AM. PATIENT A/OX2-3, BREATHING EVEN AND UNLABORED, NO SOB NOTED. NEEDS ATTENDED. ATTACHED TO THEC ARDIAC MONITOR. NO DISTRESS.
[2020-06-11] MEDS ORDERED: IV NS 0.9% 1,000 ML BAG IV ONE (16:30)
[2020-06-11] MEDS ORDERED: KETOROLAC TROMETHAMINE INJ 30 MG/ML VIAL IV ONE (16:30)
[2020-06-11] MEDS ORDERED: ALPR0.5T8 PO (16:49)
[2020-06-11] MEDS ORDERED: METH5TAB2 PO (16:49)
[2020-06-11] MEDS ORDERED: ACET325C7 PO (16:49)
[2020-06-11] MEDS ORDERED: KETOROLAC TROMETHAMINE 15 MG/ML VIAL ONE (16:53)
[2020-06-11 16:54] LABS: BASOPHILS % (AUTO) 0.5 % (0.0-2.0); EOSINOPHILS % (AUTO) 0.6 % (0.0-6.0); HEMATOCRIT 40 % (33-45); HEMOGLOBIN 13.1 g/dL (11.5-14.8); LYMPHOCYTES # (AUTO) 2.1 /CMM (0.8-4.8); LYMPHOCYTES % (AUTO) 23.7 % (20.0-44.0); MEAN CORPUSCULAR HGB CONC 33 g/dl (31.0-36.0); MEAN CORPUSCULAR VOLUME 85 fL (82-100); MONOCYTES # (AUTO) 0.7 /CMM (0.1-1.30); NEUTROPHILS % (AUTO) 67.2 % (43.0-81.0); PLATELET COUNT (AUTO) 296 /CMM (150-450); RED BLOOD CELL COUNT(AUTO) 4.64 MIL/uL (4.0-5.2); WHITE BLOOD COUNT (AUTO) 8.9 K/uL (4.3-11.0)
[2020-06-11 17:11] LABS: ALANINE AMINOTRANSFERASE 11 U/L (12-78); ALBUMIN 3.2 g/dL (3.4-5.0); ALKALINE PHOSPHATASE 62 U/L (46-116); ASPARTATE AMINOTRANSFERASE 16 U/L (15-37); BILIRUBIN,DIRECT 0.1 mg/dL (0.0-0.2); BILIRUBIN,TOTAL 0.3 mg/dL (0.2-1.0); CALCIUM, SERUM 8.9 mg/dL (8.5-10.1); CARBON DIOXIDE 31 mmol/L (21-32); CHLORIDE 105 mmol/L (98-107); CREATININE 0.8 mg/dL (0.6-1.3); GLUCOSE 101 mg/dL (74-106); POTASSIUM 3.9 mmol/L (3.5-5.1); SODIUM SERUM 143 mmol/L (136-145); TOTAL PROTEIN, SERUM 7.2 g/dL (6.4-8.2); UREA NITROGEN, BLOOD 13 mg/dL (7-18)
--- NOTE | 2020-06-11 17:40 | NUR ---
SRI [phone] CAREGIVER.
--- NOTE | 2020-06-11 19:10 | NUR ---
PT IS A&OX4 COMPLAINING OF LOWER BODY PAIN AND FEELING TIRED. VSS. BREATHING EVEN AND UNLABORED. WILL CONTINUE TO MONITOR PT. CALL LIGHT WITHIN REACH.
[2020-06-11 19:56] LABS: THYROID STIMULATING HORMONE 0.827 uIU/mL (0.358-3.74)
[2020-06-11 20:23] LABS: MAGNESIUM 1.4 mg/dL (1.8-2.4)
--- NOTE | 2020-06-11 22:00 | NUR ---
SPOKE W/ PINA FROM [facility] REGARDING D/C INSTRUCTIONS
--- NOTE | 2020-06-11 22:05 | NUR ---
[facility]
--- NOTE | 2020-06-11 22:13 | NUR ---
CALLED [facility] FOR TRANSPORTATION. NO AMBULANCE AVAILABLE FOR THE NIGHT
--- NOTE | 2020-06-11 22:33 | NUR ---
[facility] ETA [id number] TRIP #[id number]
--- NOTE | 2020-06-11 23:47 | NUR ---
Patient discharged to [facility] in stable condition via [facility]. Written and verbal after care instructions given. Patient verbalizes understanding of instruction.
--- NOTE | 2020-06-11 23:47 | NUR ---
REPORT GIVEN TO EMS. PT STABLE FOR DC BACK TO [facility].
[2020-06-12 00:34] VITALS: BP 129/84
== END 2020-06-12 00:34 ==
LOC: ER 15:22
DX: R53.1 Weakness (principal); G62.9 Polyneuropathy, unspecified; G89.29 Other chronic pain; F03.90 Unspecified dementia, unspecified severity, without behavioral disturbance, psychotic disturbance, mood disturbance, and anxiety; F17.200 Nicotine dependence, unspecified, uncomplicated; Z98.890 Other specified postprocedural states; Z88.8 Allergy status to other drugs, medicaments and biological substances; Z60.2 Problems related to living alone; Z79.899 Other long term (current) drug therapy
CPT/HCPCS: 36415; 80048; 80076; 82550; 82962; 83735; 84439; 84443; 84484; 85025; 85730; 93005; 96361; 96374; 99285; J1885; J7030